=== PATIENT | male | born 1970 | race Caucasian/White ===

== ENCOUNTER 2016-12-27 16:00 | Inpatient (IN) | payer BC, OTHER ==
[2016-12-27] MEDS ORDERED: ASPIRIN 81 MG PO STA (17:35)
--- NOTE | 2016-12-27 17:42 | ED ---
Recheck HPI - General Source: patient, RN notes reviewed Mode of arrival: ambulatory Limitations: no limitations <Salvador Padilla - Last Filed: 12/27/16 19:32> <Chencho Gonzales - Last Filed: 12/27/16 19:38> - General Chief Complaint: Recheck/Abnormal Lab/Rx Stated Complaint: Sent By PCP Abnormal Labs Time Seen by Provider: 12/27/16 17:30 - History of Present Illness Initial Comments: This a 46-year-old male presents emergency Department secondary to abnormal stress test that was performed today. Patient states that he has stress test this morning and received a phone call from his primary care physician who advised him go to the emergency department because stress test showed possible infarct. Patient states that he does have a history of hypertension, hyperlipidemia and is a former smoker. Patient states that he's been told that he is borderline diabetic. Patient states this was a stress test for surgical clearance. He states that he has chronic pain secondary to multiple muscle skeletal issues. Patient denies any chest pain or shortness breath this time denies headache, dizziness, focal weakness. (Salvador Padilla) - Related Data Home Medications Medication Instructions Recorded Confirmed Amitriptyline HCl [Elavil] 50 mg PO HS 12/27/16 12/27/16 Benazepril HCl 40 mg PO DAILY 12/27/16 12/27/16 Cyclobenzaprine [Flexeril] 10 mg PO HS 12/27/16 12/27/16 Ergocalciferol (Vitamin D2) 50,000 unit PO TH 12/27/16 12/27/16 [Vitamin D2] Simvastatin [Zocor] 40 mg PO HS 12/27/16 12/27/16 amLODIPine [Norvasc] 10 mg PO DAILY 12/27/16 12/27/16 traMADol HCL [Ultram] 50 - 100 mg PO TID PRN 12/27/16 12/27/16 Allergies Allergy/AdvReac Type Severity Reaction Status Date / Time No Known Allergies Allergy Verified 12/27/16 17:59 Review of Systems ROS Other: All systems not noted in ROS Statement are negative. <Salvador Padilla - Last Filed: 12/27/16 19:32> ROS Other: All systems not noted in ROS Statement are negative. <Chencho Gonzales - Last Filed: 12/27/16 19:38> ROS Statement: Those systems with pertinent positive or pertinent negative responses have been documented in the HPI. Past Medical History Past Medical History: Hyperlipidemia, Hypertension History of Any Multi-Drug Resistant Organisms: None Reported Past Surgical History: No Surgical Hx Reported Past Psychological History: No Psychological Hx Reported Smoking Status: Former smoker Past Alcohol Use History: Occasional Past Drug Use History: None Reported <Salvador Padilla - Last Filed: 12/27/16 19:32> General Exam Limitations: no limitations General appearance: alert, in no apparent distress, obese Neck exam: Present: normal inspection. Absent: tenderness, meningismus, lymphadenopathy Respiratory exam: Present: normal lung sounds bilaterally. Absent: respiratory distress, wheezes, rales, rhonchi, stridor Cardiovascular Exam: Present: regular rate, normal rhythm, normal heart sounds. Absent: systolic murmur, diastolic murmur, rubs, gallop, clicks Neurological exam: Present: alert, oriented X3, CN II-XII intact, reflexes normal. Absent: motor sensory deficit Skin exam: Present: warm, dry, intact, normal color. Absent: rash <Salvador Padilla - Last Filed: 12/27/16 19:32> Medical Decision Making - Lab Data Result diagrams: 12/27/16 17:50 12/27/16 17:50 <Salvador Padilla - Last Filed: 12/27/16 19:32> - Lab Data Result diagrams: 12/27/16 17:50 12/27/16 17:50 <Chencho Gonzales - Last Filed: 12/27/16 19:38> - Medical Decision Making The patient was seen and examined. All diagnostics were reviewed. The case is discussed with the PA and I agree with the findings as documented. Case was discussed with primary care physician patient is admitted for further cardiac workup and cardiology consultation. (Chencho Gonzales) - Lab Data Lab Results 12/27/16 12/27/16 12/27/16 Range/Units 17:50 17:50 17:50 WBC 8.6 (3.8-10.6) k/uL RBC 5.11 (4.30-5.90) m/uL Hgb 15.6 (13.0-17.5) gm/dL Hct 45.8 (39.0-53.0) % MCV 89.7 (80.0-100.0) fL MCH 30.6 (25.0-35.0) pg MCHC 34.1 (31.0-37.0) g/dL RDW 13.4 (11.5-15.5) % Plt Count 246 (150-450) k/uL Neutrophils % 64 % Lymphocytes % 26 % Monocytes % 6 % Eosinophils % 1 % Basophils % 0 % Neutrophils # 5.5 (1.3-7.7) k/uL Lymphocytes # 2.3 (1.0-4.8) k/uL Monocytes # 0.5 (0-1.0) k/uL Eosinophils # 0.1 (0-0.7) k/uL Basophils # 0.0 (0-0.2) k/uL PT (9.0-12.0) sec INR (<1.2) APTT (22.0-30.0) sec Sodium 141 (137-145) mmol/L Potassium 4.7 (3.5-5.1) mmol/L Chloride 106 (98-107) mmol/L Carbon Dioxide 25 (22-30) mmol/L Anion Gap 10 mmol/L BUN 14 (9-20) mg/dL Creatinine 0.92 (0.66-1.25) mg/dL Est GFR (MDRD) Af Amer >60 (>60 ml/min/1.73 sqM) Est GFR (MDRD) Non-Af >60 (>60 ml/min/1.73 sqM) Glucose 83 (74-99) mg/dL Calcium 10.0 (8.4-10.2) mg/dL Magnesium 2.0 (1.6-2.3) mg/dL Total Bilirubin 0.3 (0.2-1.3) mg/dL AST 29 (17-59) U/L ALT 61 (21-72) U/L Alkaline Phosphatase 89 (38-126) U/L Total Creatine Kinase 165 (55-170) U/L CK-MB (CK-2) 0.8 (0.0-2.4) ng/mL CK-MB (CK-2) Rel Index 0.5 Troponin I <0.012 (0.000-0.034) ng/mL Total Protein 7.1 (6.3-8.2) g/dL Albumin 4.7 (3.5-5.0) g/dL 12/27/16 Range/Units 17:50 WBC (3.8-10.6) k/uL RBC (4.30-5.90) m/uL Hgb (13.0-17.5) gm/dL Hct (39.0-53.0) % MCV (80.0-100.0) fL MCH (25.0-35.0) pg MCHC (31.0-37.0) g/dL RDW (11.5-15.5) % Plt Count (150-450) k/uL Neutrophils % % Lymphocytes % % Monocytes % % Eosinophils % % Basophils % % Neutrophils # (1.3-7.7) k/uL Lymphocytes # (1.0-4.8) k/uL Monocytes # (0-1.0) k/uL Eosinophils # (0-0.7) k/uL Basophils # (0-0.2) k/uL PT 10.6 (9.0-12.0) sec INR 1.0 (<1.2) APTT 23.8 (22.0-30.0) sec Sodium (137-145) mmol/L Potassium (3.5-5.1) mmol/L Chloride (98-107) mmol/L Carbon Dioxide (22-30) mmol/L Anion Gap mmol/L BUN (9-20) mg/dL Creatinine (0.66-1.25) mg/dL Est GFR (MDRD) Af Amer (>60 ml/min/1.73 sqM) Est GFR (MDRD) Non-Af (>60 ml/min/1.73 sqM) Glucose (74-99) mg/dL Calcium (8.4-10.2) mg/dL Magnesium (1.6-2.3) mg/dL Total Bilirubin (0.2-1.3) mg/dL AST (17-59) U/L ALT (21-72) U/L Alkaline Phosphatase (38-126) U/L Total Creatine Kinase (55-170) U/L CK-MB (CK-2) (0.0-2.4) ng/mL CK-MB (CK-2) Rel Index Troponin I (0.000-0.034) ng/mL Total Protein (6.3-8.2) g/dL Albumin (3.5-5.0) g/dL 12/27/16 18:49 EKG performed at 16:35 normal sinus rhythm with a rate of 93 GA interval 146 QRS duration 94 QT/QTC 350/435 there is inverted T waves noted in lead 3 (Salvador Padilla) Disposition <Salvadro aPdilla - Last Filed: 12/27/16 19:32> <Chencho Gonzales - Last Filed: 12/27/16 19:38> Clinical Impression: Abnormal stress test, Chest pain Disposition: ADMITTED IP TO THIS HOSP Condition: Stable Referrals: Tavares Bryson MD [Primary Care Provider] - 1-2 days
[2016-12-27 18:09] LABS: Basophils % (A) 0 %; CH 30.3; CHCM 33.9; Eosinophils # (A) 0.1 k/uL (0-0.7); Eosinophils % (A) 1 %; HCT 45.8 % (39.0-53.0); HDW 2.49; HGB 15.6 gm/dL (13.0-17.5); Luc # (Auto) 0.22; Luc % (Auto) 3; Lymphocytes # (A) 2.3 k/uL (1.0-4.8); Lymphocytes % (A) 26 %; MCH 30.6 pg (25.0-35.0); MCHC 34.1 g/dL (31.0-37.0); MCV 89.7 fL (80.0-100.0); Mean Platelet Volume 6.6; Monocytes # (A) 0.5 k/uL (0-1.0); Monocytes % (A) 6 %; Neutrophils # (A) 5.5 k/uL (1.3-7.7); Neutrophils % (A) 64 %; RBC 5.11 m/uL (4.30-5.90); RDW 13.4 % (11.5-15.5); WBC 8.6 k/uL (3.8-10.6); WBC (Perox) 8.11
[2016-12-27 18:22] LABS: Partial Thromboplastin Time 23.8 sec (22.0-30.0); Prothrombin Time 10.6 sec (9.0-12.0)
[2016-12-27 18:27] LABS: ALT 61 U/L (21-72); AST 29 U/L (17-59); Alkaline Phosphatase 89 U/L (38-126); Anion Gap 10 mmol/L; Blood Urea Nitrogen 14 mg/dL (9-20); Carbon Dioxide 25 mmol/L (22-30); Chloride 106 mmol/L (98-107); Glucose 83 mg/dL (74-99); Non-African American GFR(MDRD) >60 (>60 ml/min/1.73 sqM); Potassium 4.7 mmol/L (3.5-5.1); Sodium 141 mmol/L (137-145); Total Bilirubin 0.3 mg/dL (0.2-1.3); Total Protein 7.1 g/dL (6.3-8.2)
[2016-12-27 18:29] LABS: Creatine Kinase 165 U/L (55-170)
--- NOTE | 2016-12-27 18:29 | XR ---
EXAMINATION TYPE: XR chest 2V DATE OF EXAM: 12/27/2016 COMPARISON: NONE HISTORY: Abnormal stress test TECHNIQUE: Frontal and lateral views of the chest are obtained. FINDINGS: There is no focal air space opacity, pleural effusion, or pneumothorax seen. The cardiac silhouette size is within normal limits. The osseous structures are intact with mild degenerative c hanges of the thoracic spine. IMPRESSION: No acute cardiopulmonary process.
[2016-12-27 18:43] LABS: Creatine Kinase MB 0.8 ng/mL (0.0-2.4); Troponin I <0.012 ng/mL (0.000-0.034)
[2016-12-27] MEDS ORDERED: NITROGLYCERIN SL TABS 0.4 MG TAB SUBLINGUAL PRN (19:32)
[2016-12-27] MEDS ORDERED: HEPARIN SODIUM,PORCINE 5,000 UNIT/ML 1 ML VIAL IV ONE (19:32)
[2016-12-27] MEDS ORDERED: HEPARIN SODIUM,PORCINE/D5W PMX 25,000 UNIT in DEXTROSE/WATER 1 500ML.BAG IV SCH (19:45)
[2016-12-27] MEDS: AMITRIPTYLINE HCL 50 MG TAB PO SCH (21:06)
[2016-12-27] MEDS: CYCLOBENZAPRINE 10 MG TAB PO SCH (21:06)
[2016-12-27] MEDS: ATORVASTATIN 20 MG TAB PO SCH (21:06)
[2016-12-27] MEDS: traMADol 50 MG TAB PO PRN (21:07)
[2016-12-28 00:29] LABS: Creatine Kinase 131 U/L (55-170)
[2016-12-28 00:43] LABS: Creatine Kinase MB 0.6 ng/mL (0.0-2.4); Troponin I <0.012 ng/mL (0.000-0.034)
[2016-12-28] MEDS ORDERED: HEPARIN SODIUM,PORCINE 5,000 UNIT/ML 1 ML VIAL IV STA (03:08)
[2016-12-28 07:01] LABS: Cholesterol 122 mg/dL (<200)
[2016-12-28 07:03] LABS: Creatine Kinase 119 U/L (55-170); HDL Cholesterol 43 mg/dL (40-60)
[2016-12-28 07:14] LABS: Creatine Kinase MB 0.6 ng/mL (0.0-2.4); Troponin I <0.012 ng/mL (0.000-0.034)
--- NOTE | 2016-12-28 10:00 | P.CRDCN ---
History of Present Illness History of present illness: Patient interviewed and examined. Admitted by Dr. Bryson for an abnormal stress test done yesterday. Patient awaiting shoulder surgery. Stress test results are reviewed. Patient interviewed and examined. Vitals stable normal heart sounds. He denies any chest discomfort no undue shortness of breath his BMI is 48 He has hypertension and takes his medications regularly I suggested proceeding with coronary angiography to delineate the epicardial coronary anatomy based upon the fact that his stress test was abnormal. He is agreeable to plan He is seen Dr. Bauer a few years back and I will put him a call to Dr. Bauer did continue statins, continue amlodipine and benazepril continue baby aspirin PC full dictation by nurse practitioner Past Medical History Past Medical History: Chest Pain / Angina, Hyperlipidemia, Hypertension, Osteoarthritis (OA) Additional Past Medical History / Comment(s): 12/27/16 STRESS TEST .LT SIDE DOMINANT. CARPAL TUNNEL SHONNA, "MY ROTATOR CUFFS ARE GONE AND I HAVE BONE SPURS", "DR TOLD ME HE THINKS I MAY BE [employer] I JUST WATCH WHAT I EAT", DD HERNIATED /BULGING DISCS. History of Any Multi-Drug Resistant Organisms: None Reported Past Surgical History: No Surgical Hx Reported Additional Past Surgical History / Comment(s): SOME TEETH EXTRACTED Past Anesthesia/Blood Transfusion Reactions: Motion Sickness Smoking Status: Never smoker - Past Family History Mother Family Medical History: Cancer Additional Family Medical History / Comment(s): LUNG CANCER.... MOM'S DAD HAD BONE CANCER Father Family Medical History: Coronary Artery Disease (CAD), Diabetes Mellitus, Hyperlipidemia, Hypertension, Myocardial Infarction (GA) Additional Family Medical History / Comment(s): TRIPLE CABG Brother(s) Additional Family Medical History / Comment(s): OLDEST BROTHER HAD BONE CANCER Medications and Allergies Home Medications Medication Instructions Recorded Confirmed Type Amitriptyline HCl [Elavil] 50 mg PO HS 12/27/16 12/27/16 History Benazepril HCl 40 mg PO DAILY 12/27/16 12/27/16 History Cyclobenzaprine [Flexeril] 10 mg PO BID 12/27/16 12/27/16 History Ergocalciferol (Vitamin D2) 50,000 unit PO TH 12/27/16 12/27/16 History [Vitamin D2] Simvastatin [Zocor] 40 mg PO HS 12/27/16 12/27/16 History amLODIPine [Norvasc] 10 mg PO DAILY 12/27/16 12/27/16 History traMADol HCL [Ultram] 50 - 100 mg PO TID PRN 12/27/16 12/27/16 History Allergies Allergy/AdvReac Type Severity Reaction Status Date / Time No Known Allergies Allergy Verified 12/27/16 20:58 Physical Exam Vitals: Vital Signs Temp Pulse Pulse Resp BP BP Pulse Ox 12/28/16 07:44 98.1 F 74 18 110/55 98 12/28/16 04:00 62 18 12/28/16 03:59 98.3 F 67 18 132/76 96 12/28/16 00:00 98.3 F 80 18 124/75 95 12/27/16 20:36 90 18 12/27/16 20:16 98.6 F 89 18 142/87 98 12/27/16 19:55 98.4 F 89 18 142/95 94 L 12/27/16 17:56 89 18 148/86 97 12/27/16 16:25 98.2 F 87 20 135/81 95 Intake and Output 12/27/16 12/28/16 12/28/16 22:59 06:59 14:59 Intake Total 760 935.984 Output Total 1150 Balance -390 935.984 Intake: IV 80 320 0.9 NS @ KVO 80 160 Heparin Sodium,Porcine/ 160 D5w Pmx 25,000 unit In Dextrose/Water 1 500ml. bag @ 7.11 UNITS/KG/HR 19 .99 mls/hr IV .Q24H IRENA Rx#:[id number] Intake, IV Titration 80 265.984 Amount Heparin Sodium,Porcine/ 80 265.984 D5w Pmx 25,000 unit In Dextrose/Water 1 500ml. bag @ 7.11 UNITS/KG/HR 19 .99 mls/hr IV .Q24H IRENA Rx#:[id number] Oral 600 350 Output: Urine 1150 Other: Voiding Method Toilet Toilet Urinal Urinal # Voids 3 Weight 139 kg Results 12/27/16 17:50 12/27/16 17:50 Cardiac Enzymes 12/27/16 12/27/16 12/27/16 Range/Units 17:50 17:50 23:34 AST 29 (17-59) U/L CK-MB (CK-2) 0.8 0.6 (0.0-2.4) ng/mL Troponin I <0.012 <0.012 (0.000-0.034) ng/mL 12/28/16 Range/Units 06:21 AST (17-59) U/L CK-MB (CK-2) 0.6 (0.0-2.4) ng/mL Troponin I <0.012 (0.000-0.034) ng/mL Coagulation 12/27/16 12/27/16 Range/Units 17:50 23:34 PT 10.6 (9.0-12.0) sec APTT 23.8 31.2 H (22.0-30.0) sec Lipids 12/28/16 Range/Units 06:21 Triglycerides 72 (<150) mg/dL Cholesterol 122 (<200) mg/dL HDL Cholesterol 43 (40-60) mg/dL CBC 12/27/16 Range/Units 17:50 WBC 8.6 (3.8-10.6) k/uL RBC 5.11 (4.30-5.90) m/uL Hgb 15.6 (13.0-17.5) gm/dL Hct 45.8 (39.0-53.0) % Plt Count 246 (150-450) k/uL Comprehensive Metabolic Panel 12/27/16 Range/Units 17:50 Sodium 141 (137-145) mmol/L Potassium 4.7 (3.5-5.1) mmol/L Chloride 106 (98-107) mmol/L Carbon Dioxide 25 (22-30) mmol/L BUN 14 (9-20) mg/dL Creatinine 0.92 (0.66-1.25) mg/dL Glucose 83 (74-99) mg/dL Calcium 10.0 (8.4-10.2) mg/dL AST 29 (17-59) U/L ALT 61 (21-72) U/L Alkaline Phosphatase 89 (38-126) U/L Total Protein 7.1 (6.3-8.2) g/dL Albumin 4.7 (3.5-5.0) g/dL Current Medications Generic Name Dose Route Start Last Admin Trade Name Freq PRN Reason Stop Dose Admin Amitriptyline HCl 50 mg 09/18/17 21:00 12/27/16 21:06 Elavil PO 50 mg HS [facility] Administration Amlodipine Besylate 10 mg 12/28/16 09:00 Norvasc PO DAILY [facility] Aspirin 325 mg 12/28/16 09:00 Aspirin PO DAILY [facility] Atorvastatin Calcium 20 mg 12/27/16 21:00 12/27/16 21:06 Lipitor PO 20 mg HS [facility] Administration Cyclobenzaprine HCl 10 mg 12/27/16 21:00 12/27/16 21:06 Flexeril PO 10 mg HS [facility] Administration Heparin Sodium/Dextrose 25,000 500 mls @ 19.99 mls/hr 12/27/16 19:45 03:44 unit/ IV Solution IV 10.11 units/kg/hr .Q24H IRENA 28.43 mls/hr Protocol Titration 7.11 UNITS/KG/HR Lisinopril 40 mg 12/28/16 09:00 Zestril PO DAILY [facility] Nitroglycerin 0.4 mg 12/27/16 19:32 Nitrostat SUBLINGUAL Q5M PRN Chest Pain Tramadol HCl 50 - 100 mg 12/27/16 19:34 12/27/16 21:07 Ultram PO 100 mg TID PRN Administration Pain Intake and Output 12/27/16 12/28/16 12/28/16 22:59 06:59 14:59 Intake Total 760 935.984 Output Total 1150 Balance -390 935.984 Intake: IV 80 320 0.9 NS @ KVO 80 160 Heparin Sodium,Porcine/ 160 D5w Pmx 25,000 unit In Dextrose/Water 1 500ml. bag @ 7.11 UNITS/KG/HR 19 .99 mls/hr IV .Q24H [facility] Rx#:[id number] Intake, IV Titration 80 265.984 Amount Heparin Sodium,Porcine/ 80 265.984 D5w Pmx 25,000 unit In Dextrose/Water 1 500ml. bag @ 7.11 UNITS/KG/HR 19 .99 mls/hr IV .Q24H [facility] Rx#:[id number] Oral 600 350 Output: Urine 1150 Other: Voiding Method Toilet Toilet Urinal Urinal # Voids 3 Weight 139 kg 12/27/16 17:50 12/27/16 17:50
[2016-12-28] MEDS ORDERED: ALPRAZolam 0.5 MG TAB PO PRN (10:03)
[2016-12-28] MEDS ORDERED: ALPRAZolam 0.25 MG TAB PO PRN (10:03)
[2016-12-28] MEDS ORDERED: SODIUM CHLORIDE 0.9% 1,000 ML in EMPTY BAG 1 BAG IV ONE (10:03)
[2016-12-28] MEDS: ASPIRIN 325 MG TAB PO SCH (10:41)
[2016-12-28] MEDS: LISINOPRIL 20 MG TAB PO SCH (10:41)
[2016-12-28] MEDS: amLODIPine 10 MG TAB PO SCH (10:41)
--- NOTE | 2016-12-28 11:46 | P.CRDCN ---
History of Present Illness Consult date: 12/28/16 History of present illness: This is a 46-year-old male. Past medical history significant for hypertension, hyperlipidemia and morbid obesity. Patient presents with complaints of abnormal Lexiscan done yesterday. He was sent in by his PCP. The patient denies chest pain, shortness of breath, dizziness, back pain, arm pain, nausea or vomiting. He states he is completely asymptomatic. The Lexiscan stress test is being done as per for presurgical clearance. He is scheduled for a left rotator cuff repair Tuesday with Dr. Plascencia. Acuteness of the abnormality is not established at this time due to normal EKG and troponins. The patient has seen Dr. VIPIN Bauer in the office previously. His last consultation with him was in 2011. At that time it was recommended he have a sleep study with his PCP. EKG done shows normal sinus mechanism per minute with no T-wave abnormality. When compared with old EKG this appears consistent. Troponins are normal x 3. Chest x-ray showed no acute cardiopulmonary process. Most recent echo dated 02/2012 indicates normal systolic function with an ejection fraction of 55%. Mild concentric left ventricular hypertrophy. Left atrium mildly dilated. Right ventricle mildly dilated. Right atrium mildly dilated. Trace mitral regurgitation. Mild tricuspid regurgitation. Review of Systems Extensive review of systems performed, negative except mentioned in HPI. Past Medical History Past Medical History: Chest Pain / Angina, Hyperlipidemia, Hypertension, Osteoarthritis (OA) Additional Past Medical History / Comment(s): 12/27/16 STRESS TEST .LT SIDE DOMINANT. CARPAL TUNNEL SHONNA, "MY ROTATOR CUFFS ARE GONE AND I HAVE BONE SPURS", "DR TOLD ME HE THINKS I MAY BE [employer] I JUST WATCH WHAT I EAT", DD HERNIATED /BULGING DISCS. History of Any Multi-Drug Resistant Organisms: None Reported Past Surgical History: No Surgical Hx Reported Additional Past Surgical History / Comment(s): SOME TEETH EXTRACTED Past Anesthesia/Blood Transfusion Reactions: Motion Sickness Smoking Status: Never smoker - Past Family History Mother Family Medical History: Cancer Additional Family Medical History / Comment(s): LUNG CANCER.... MOM'S DAD HAD BONE CANCER Father Family Medical History: Coronary Artery Disease (CAD), Diabetes Mellitus, Hyperlipidemia, Hypertension, Myocardial Infarction (DC) Additional Family Medical History / Comment(s): TRIPLE CABG Brother(s) Additional Family Medical History / Comment(s): OLDEST BROTHER HAD BONE CANCER Medications and Allergies Home Medications Medication Instructions Recorded Confirmed Type Amitriptyline HCl [Elavil] 50 mg PO HS 12/27/16 12/27/16 History Benazepril HCl 40 mg PO DAILY 12/27/16 12/27/16 History Cyclobenzaprine [Flexeril] 10 mg PO BID 12/27/16 12/27/16 History Ergocalciferol (Vitamin D2) 50,000 unit PO TH 12/27/16 12/27/16 History [Vitamin D2] Simvastatin [Zocor] 40 mg PO HS 12/27/16 12/27/16 History amLODIPine [Norvasc] 10 mg PO DAILY 12/27/16 12/27/16 History traMADol HCL [Ultram] 50 - 100 mg PO TID PRN 12/27/16 12/27/16 History Allergies Allergy/AdvReac Type Severity Reaction Status Date / Time No Known Allergies Allergy Verified 12/27/16 20:58 Physical Exam Vitals: Vital Signs Temp Pulse Pulse Resp BP BP Pulse Ox 12/28/16 07:44 98.1 F 74 18 110/55 98 12/28/16 04:00 62 18 12/28/16 03:59 98.3 F 67 18 132/76 96 12/28/16 00:00 98.3 F 80 18 124/75 95 12/27/16 20:36 90 18 12/27/16 20:16 98.6 F 89 18 142/87 98 12/27/16 19:55 98.4 F 89 18 142/95 94 L 12/27/16 17:56 89 18 148/86 97 12/27/16 16:25 98.2 F 87 20 135/81 95 Intake and Output 12/27/16 12/28/16 12/28/16 22:59 06:59 14:59 Intake Total 760 935.984 Output Total 1150 Balance -390 935.984 Intake: IV 80 320 0.9 NS @ KVO 80 160 Heparin Sodium,Porcine/ 160 D5w Pmx 25,000 unit In Dextrose/Water 1 500ml. bag @ 7.11 UNITS/KG/HR 19 .99 mls/hr IV .Q24H [facility] Rx#:[id number] Intake, IV Titration 80 265.984 Amount Heparin Sodium,Porcine/ 80 265.984 D5w Pmx 25,000 unit In Dextrose/Water 1 500ml. bag @ 7.11 UNITS/KG/HR 19 .99 mls/hr IV .Q24H [facility] Rx#:[id number] Oral 600 350 Output: Urine 1150 Other: Voiding Method Toilet Toilet Toilet Urinal Urinal Urinal # Voids 3 Weight 139 kg GENERAL: This is a 46-year-old male in no apparent distress at the time of my examination. Morbidly obese. HEENT: Head is atraumatic, normocephalic. Pupils are equal, round. Sclerae anicteric. Conjunctivae are clear. Mucous membranes of the mouth are moist. Neck is supple. There is no jugular venous distention. No carotid bruit is heard. LUNGS: Clear to auscultation no wheezes, rales or rhonchi. No chest wall tenderness is noted on palpation or with deep breathing. HEART: Regular rate and rhythm without murmurs, rubs or gallops. S1 and S2 heard. ABDOMEN: Soft, nontender. Bowel sounds are heard. No organomegaly noted. EXTREMITIES: 2+ peripheral pulses with no evidence of peripheral edema and no calf tenderness noted. NEUROLOGIC: Patient is awake, alert and oriented x3. Results 12/27/16 17:50 12/27/16 17:50 Cardiac Enzymes 12/27/16 12/27/16 12/27/16 Range/Units 17:50 17:50 23:34 AST 29 (17-59) U/L CK-MB (CK-2) 0.8 0.6 (0.0-2.4) ng/mL Troponin I <0.012 <0.012 (0.000-0.034) ng/mL 12/28/16 Range/Units 06:21 AST (17-59) U/L CK-MB (CK-2) 0.6 (0.0-2.4) ng/mL Troponin I <0.012 (0.000-0.034) ng/mL Coagulation 12/27/16 12/27/16 Range/Units 17:50 23:34 PT 10.6 (9.0-12.0) sec APTT 23.8 31.2 H (22.0-30.0) sec Lipids 12/28/16 Range/Units 06:21 Triglycerides 72 (<150) mg/dL Cholesterol 122 (<200) mg/dL HDL Cholesterol 43 (40-60) mg/dL CBC 12/27/16 Range/Units 17:50 WBC 8.6 (3.8-10.6) k/uL RBC 5.11 (4.30-5.90) m/uL Hgb 15.6 (13.0-17.5) gm/dL Hct 45.8 (39.0-53.0) % Plt Count 246 (150-450) k/uL Comprehensive Metabolic Panel 12/27/16 Range/Units 17:50 Sodium 141 (137-145) mmol/L Potassium 4.7 (3.5-5.1) mmol/L Chloride 106 (98-107) mmol/L Carbon Dioxide 25 (22-30) mmol/L BUN 14 (9-20) mg/dL Creatinine 0.92 (0.66-1.25) mg/dL Glucose 83 (74-99) mg/dL Calcium 10.0 (8.4-10.2) mg/dL AST 29 (17-59) U/L ALT 61 (21-72) U/L Alkaline Phosphatase 89 (38-126) U/L Total Protein 7.1 (6.3-8.2) g/dL Albumin 4.7 (3.5-5.0) g/dL Current Medications Generic Name Dose Route Start Last Admin Trade Name Freq PRN Reason Stop Dose Admin Alprazolam 0.25 mg 12/28/16 10:03 Xanax PO Q6HR PRN Mild Anxiety Alprazolam 0.5 mg 12/28/16 10:03 Xanax PO Q6HR PRN Moderate Anxiety Amitriptyline HCl 50 mg 12/27/16 21:00 12/27/16 21:06 Elavil PO 50 mg HS [facility] Administration Amlodipine Besylate 10 mg 12/28/16 09:00 12/28/16 10:41 Norvasc PO 10 mg DAILY [facility] Administration Aspirin 325 mg 12/28/16 09:00 12/28/16 10:41 Aspirin PO 325 mg DAILY IRENA Administration Atorvastatin Calcium 20 mg 12/27/16 21:00 12/27/16 21:06 Lipitor PO 20 mg HS IRENA Administration Cyclobenzaprine HCl 10 mg 09/18/17 21:00 12/27/16 21:06 Flexeril PO 10 mg HS IRENA Administration Heparin Sodium/Dextrose 25,000 500 mls @ 19.99 mls/hr 12/27/16 19:45 03:44 unit/ IV Solution IV 10.11 units/kg/hr .Q24H [facility] 28.43 mls/hr Protocol Titration 7.11 UNITS/KG/HR Lisinopril 40 mg 12/28/16 09:00 12/28/16 10:41 Zestril PO 40 mg DAILY [facility] Administration Nitroglycerin 0.4 mg 12/27/16 19:32 Nitrostat SUBLINGUAL Q5M PRN Chest Pain Tramadol HCl 50 - 100 mg 12/27/16 19:34 12/27/16 21:07 Ultram PO 100 mg TID PRN Administration Pain Intake and Output 12/27/16 12/28/16 12/28/16 22:59 06:59 14:59 Intake Total 760 935.984 Output Total 1150 Balance -390 935.984 Intake: IV 80 320 0.9 NS @ KVO 80 160 Heparin Sodium,Porcine/ 160 D5w Pmx 25,000 unit In Dextrose/Water 1 500ml. bag @ 7.11 UNITS/KG/HR 19 .99 mls/hr IV .Q24H [facility] Rx#:[id number] Intake, IV Titration 80 265.984 Amount Heparin Sodium,Porcine/ 80 265.984 D5w Pmx 25,000 unit In Dextrose/Water 1 500ml. bag @ 7.11 UNITS/KG/HR 19 .99 mls/hr IV .Q24H [facility] Rx#:[id number] Oral 600 350 Output: Urine 1150 Other: Voiding Method Toilet Toilet Toilet Urinal Urinal Urinal # Voids 3 Weight 139 kg 12/27/16 17:50 12/27/16 17:50 EKG Interpretations (text) EKG indicates a normal sinus mechanism. Assessment and Plan Plan: ASSESSMENT 1. Abnormal Lexiscan stress test 2. Essential hypertension 3. Dyslipidemia 4. Morbid obesity PLAN Has been discussed with Dr. Bauer and he agrees to proceed with cardiac catheterization. This procedure will take place tomorrow. The patient should be nothing by mouth after midnight. I have discussed the risks, benefits and alternative therapies for the above-mentioned procedure and for both sedation/ analgesia as well as necessary blood product administration, if indicated, as they pertain to this patient. The patient has indicated understanding and acceptance of the risks and procedures discussed. Patient is agreeable to proceed. Continue medications as previously ordered. Nurse Practitioner note has been reviewed, I agree with a documented findings and plan of care. Patient was seen and examined.
--- NOTE | 2016-12-28 18:21 | ECHOF ---
Referral Reason:abnormal stress test MEASUREMENTS -------- HEIGHT: 170.2 cm WEIGHT: 138.8 kg BP: 110/55 RVIDd: 3.9 cm (< 3.3) IVSd: 1.2 cm (0.6 - 1.1) LVIDd: 5.8 cm (3.9 - 5.3) LVPWd: 1.3 cm (0.6 - 1.1) IVSs: 1.5 cm LVIDs: 4.3 cm LVPWs: 1.4 cm LAESV Index (A-L): 18.56 ml/m Ao Diam: 3.3 cm (2.0 - 3.7) AV Cusp: 2.1 cm (1.5 - 2.6) LA Diam: 4.0 cm (2.7 - 3.8) MV E Prashanth: 0.62 m/s MV DecT: 342 ms MV A Prashanth: 0.52 m/s MV E/A Ratio: 1.19 RAP: 5.00 mmHg RVSP: 9.79 mmHg FINDINGS -------- Sinus rhythm. This was a technically difficult study with suboptimal views. The left ventricular size is normal. There is mild concentric left ventricular hypertrophy. Overall left ventricular systolic function is normal with, an EF between 55 - 60 %. The right ventricle is normal in size and function. Normal LA size by volume 22+/-6 ml/m2. The right atrium is normal in size. Lumason was utilized for enhancement of images. The aortic valve is trileaflet, and appears structurally normal. No aortic stenosis or regurgitation. The mitral valve is normal. There is trace mitral regurgitation. Trace tricuspid regurgitation present. The pulmonic valve was not well visualized. The aortic root size is normal. IVC Not well visulized. The pericardium is normal. There is no pericardial effusion. CONCLUSIONS -------- 1. Sinus rhythm. 2. Trace tricuspid regurgitation present. 3. The pulmonic valve was not well visualized. 4. The aortic root size is normal. 5. IVC Not well visulized. 6. There is no pericardial effusion. 7. This was a technically difficult study with suboptimal views. 8. The left ventricular size is normal. 9. There is mild concentric left ventricular hypertrophy. 10. Overall left ventricular systolic function is normal with, an EF between 55 - 60 %. 11. Normal LA size by volume 22+/-6 ml/m2. 12. Lumason was utilized for enhancement of images. 13. The aortic valve is trileaflet, and appears structurally normal. No aortic stenosis or regurgitation. 14. There is trace mitral regurgitation. TECHNICIAN: Hubert Ashford RDCS
[2016-12-28] MEDS: traMADol 50 MG TAB PO PRN (22:16)
[2016-12-29] MEDS: AMITRIPTYLINE HCL 50 MG TAB PO SCH (05:31)
[2016-12-29] MEDS: CYCLOBENZAPRINE 10 MG TAB PO SCH (05:32)
[2016-12-29] MEDS: ATORVASTATIN 20 MG TAB PO SCH (05:32)
--- NOTE | 2016-12-29 05:39 | HP ---
HISTORY AND PHYSICAL CHIEF COMPLAINT: A 46-year-old, white male with hypertension dyslipidemia morbid obesity admitted to the ER due to acute myocardial infarction on a stress test that was read by radiology department. He was in for a preop stress test due to a surgery next week, an orthopedic surgery. Troponins were negative x3. Chest x-ray was negative. He was admitted. Ejection fraction 55%. He is going to have a heart catheterization tomorrow based on the stress test report. FAMILY HISTORY: Mother had lung cancer. Father had coronary artery disease, diabetes mellitus, dyslipidemia, hypertension, myocardial infarction. Brother has bone cancer. HOME MEDICINES: 1. Elavil. 2. Benazepril. 3. Flexeril. 4. Vitamin D2. 5. Zocor. 6. Norvasc. 7. Tramadol. ALLERGIES: Allergies are no known drug allergies. PHYSICAL EXAM: Temp 98.1, pulse 70 to 74, blood pressure 110 over 50s, O2 sat 98% on room air. CARDIOVASCULAR: S1, S2. LUNGS: Transmitted upper airway sounds. HEMATOLOGY: Negative Homans. PSYCH: Fair mood affect. OPHTHALMOLOGIC: Pupils equal, round and reactive to light and accommodation. NEUROLOGIC: Alert and oriented x3. VASCULAR: 2+ dorsalis pedis, posterior tibial radial pulses. Lungs are clear. ENDOCRINE: BMI is over 40. LABS: Labs reviewed CBC and Chem panel. ASSESSMENT: 1. Abnormal Lexiscan stress test. 2. Hypertension. 3. Obesity. 4. Dyslipidemia. The patient to have a cardiac catheterization in the morning due to preop necessity and possible heart attack seen on the stress test. MMODL / IJN: [id number] /
[2016-12-29] MEDS ORDERED: ATORVASTATIN 80 MG TAB PO STA (07:36)
[2016-12-29 08:01] VITALS: RESP 18
[2016-12-29] MEDS: ASPIRIN 325 MG TAB PO SCH (11:24)
[2016-12-29 11:31] VITALS: TEMP 98.1
--- NOTE | 2016-12-29 11:46 | PN ---
PROGRESS NOTE This is a 46-year-old obese gentleman with history of hypertension, hypercholesterolemia, who used to see me in the office until a couple of years ago. He apparently was going for elective left shoulder surgery, but because of an abnormal EKG and nondescript chest heaviness from time to time, he went on to have a Lexiscan stress test which revealed inferior lateral reversible defect suggestive of ischemia. He was advised cardiac catheterization. I discussed with the patient the findings on the nuclear scan, the rationale for cardiac cath, the risks, benefits, and options. He understands all details and wishes to proceed with the procedure. I would attempt from the right radial approach and the procedure will be performed today. If we find a significant lesion, he will go on to have an intervention. This was explained to the patient in great detail. I offered to talk to his , but I believe she is not available. Following the coronary angiography, if indicated, PCI would be performed and patient understands all the risks, benefits, options and rationale and wishes to proceed. PHYSICAL EXAM: Revealed blood pressure 134/70, pulse rate of 70 per minute. No JVD or carotid bruit. S1, S2 heard normally with distant heart sounds. Lungs were clear. Abdomen and lower extremity exam was unremarkable. MMODL / IJN: [id number] /
[2016-12-29] MEDS ORDERED: LIDOCAINE 2% INJ 20 MG/ML (20 ML MDV) ONE (12:13)
[2016-12-29] MEDS ORDERED: VERAPAMIL 2.5 MG/ML 2 ML AMP ONE (12:14)
[2016-12-29] MEDS ORDERED: diphenhydrAMINE 50 MG/ML 1 ML VIAL ONE (12:19)
[2016-12-29] MEDS ORDERED: MIDAZOLAM 2 MG/2 ML VIAL ONE (12:19)
[2016-12-29] MEDS ORDERED: IV FLUID CONTINUATION 1,000 ML IV ONE (12:30)
[2016-12-29] MEDS ORDERED: MIDAZOLAM 2 MG/2 ML VIAL IVP ONE (12:35)
[2016-12-29] MEDS ORDERED: diphenhydrAMINE 50 MG/ML 1 ML VIAL IVP ONE (12:35)
[2016-12-29] MEDS ORDERED: HEPARIN SODIUM 1,000 UN/ML (10ML VL) ONE (12:36)
[2016-12-29] MEDS ORDERED: LIDOCAINE 2% INJ 20 MG/ML SQ ONE ×2 (12:38)
[2016-12-29] MEDS ORDERED: HYDROmorphone 2 MG/ML 1 ML SYRINGE ONE (12:40)
[2016-12-29] MEDS: VERAPAMIL SYRINGE (5 MG/10 ML) INTRAARTER ONE ×2 (12:41→12:54)
[2016-12-29] MEDS ORDERED: HYDROmorphone 2 MG/ML 1 ML SYRINGE IVP ONE (12:42)
[2016-12-29] MEDS ORDERED: HEPARIN SODIUM 1,000 UN/ML (10ML VL) IV ONE (12:42)
[2016-12-29] MEDS ORDERED: IOHEXOL 350 MG/ML 100 ML BOTTLE INJ ONE (12:55)
[2016-12-29] MEDS: LISINOPRIL 20 MG TAB PO SCH (16:30)
[2016-12-29] MEDS: amLODIPine 10 MG TAB PO SCH (16:30)
[2016-12-29 17:29] VITALS: BP 143/86; PULSE 89
[2016-12-29] MEDS ORDERED: METOPROLOL TARTRATE 25 MG TAB PO SCH (21:00)
--- NOTE | 2016-12-29 22:17 | CC ---
CARDIAC CATHETERIZATION REPORT DATE OF SERVICE: 12/29/2016 PROCEDURE: Left heart catheterization, coronary angiography. PERFORMED BY: Dr. [place]ia Bauer. CLINICAL INFORMATION: Mr. Chencho Reddy is a 46-year-old obese gentleman with a history of hypertension, hyperlipidemia, and chronic back discomfort. He also has a history of left shoulder pain. Prior to elective shoulder surgery, he was advised to have a stress test because of some abnormality on the EKG by his primary care physician, Dr. Tavares Bryson. Stress test revealed evidence of ischemia in the inferolateral wall and he was therefore advised to have a cardiac catheterization. The rationale, risks, benefits and options were explained to the patient in great detail. He understood all details and wished to proceed with the procedure. PROCEDURE NOTE: Under local anesthesia and strict precautions, a 6-Uzbek introducer was placed in the right radial artery. Using an Ultimate I catheter, I performed selective coronary angiography of the left coronary artery and also checked LV pressures. Using a JR4 catheter, I performed selective coronary angiography of the nondominant RCA. LV pressures were obtained, but LV gram was not performed. The sheath was taken out and a TR band applied as per protocol and he was sent to the room in stable condition. The patient tolerated the procedure well without complications. Moderate conscious was provided for a total duration of 30 minutes. The patient was monitored closely. He was given Versed, Benadryl and Dilaudid. Oxygen saturation was good. CARDIAC CATHETERIZATION FINDINGS: The left ventricular end-diastolic pressure was 4 mmHg without any gradient across the aortic valve. CORONARY ANGIOGRAPHY FINDINGS: RIGHT CORONARY ARTERY: Small nondominant vessel supplies a limited amount of myocardium. There is no significant disease in the nondominant RCA. There are only minor irregularities. LEFT MAIN CORONARY ARTERY: Short, patent, disease-free vessel that immediately bifurcates into LAD and circumflex. Left main does not have any significant disease. LEFT ANTERIOR DESCENDING CORONARY ARTERY: Good-caliber vessel extends along the anterior wall and gives off small diagonal branches, several septal branches, runs all the way to the apex and supplies the lateral wall as well with a very long branch that is small in caliber but distributes the entire apicolateral wall. The entire LAD is free of significant disease. It supplies a sizable amount of myocardium. This is a large-distribution vessel. LEFT POSTERIOR CIRCUMFLEX CORONARY ARTERY: Technically a dominant vessel, gives off a small obtuse marginal proximally, a moderate-sized obtuse marginal in the midportion and other third obtuse marginal, and after that it bifurcates into PDA and PLV. The entire circumflex system has minor irregularities, no significant obstructive disease and supplies a sizable amount of myocardium. LEFT VENTRICULOGRAM: This was not performed. FINAL IMPRESSION: This patient has a left-dominant system. He does not have any obstructive coronary artery disease. His filling pressures are normal. LV gram was not performed, but by echocardiogram ejection fraction was 60%. RECOMMENDATION: Findings were discussed with the patient. I also spoke to the family members. He does not have any obstructive CAD. He can go ahead with the proposed left shoulder surgery. I am adding a beta tamir, metoprolol tartrate 25 mg daily to his regimen. He can be discharged later on today if he remains stable and if it is okay with Dr. Tavares Bryson. I tried to call Dr. Bryson on his cell phone, but there was no answer. I will try and call him in the office. The patient tolerated the procedure well without complication. There is no contraindication for the left shoulder surgery. I am recommending cautious fluid administration and optimal blood pressure control perioperatively. I will see him in the office next week. MMODL / IJN: [id number] /
[2016-12-30] MEDS ORDERED: METOPROLOL TARTRATE 25 MG TAB PO SCH ×2 (09:00)
== END 2016-12-29 20:41 | disposition home or self-care (01) | DRG 287 ==
LOC: EC 16:00 → 3OBS 19:37 → OBSVTOIN 12-29 12:43
PROVIDERS: ADMIT Family Medicine; ATTEND Family Medicine
PROC: B2111ZZ Fluoroscopy of Multiple Coronary Arteries using Low Osmolar Contrast (ICD-10-PCS; 2016-12-29)
PROC: 4A023N7 Measurement of Cardiac Sampling and Pressure, Left Heart, Percutaneous Approach (ICD-10-PCS; principal; 2016-12-29 12:12)
DX: R94.39 Abnormal result of other cardiovascular function study (principal); E66.01 Morbid (severe) obesity due to excess calories; I10 Essential (primary) hypertension; E78.5 Hyperlipidemia, unspecified; E78.00 Pure hypercholesterolemia, unspecified; M19.91 Primary osteoarthritis, unspecified site; G89.29 Other chronic pain; R73.03 Prediabetes; I07.1 Rheumatic tricuspid insufficiency; Z87.891 Personal history of nicotine dependence; Z79.899 Other long term (current) drug therapy; Z82.49 Family history of ischemic heart disease and other diseases of the circulatory system
CPT/HCPCS: 36415; 71020; 80053; 80061; 82550; 82553; 83735; 84484; 85025; 85610; 85730; 93005; 93306; 93458; 96365; 96366; 96374; 96376; 99284

== ENCOUNTER → 2016-12-27 | Outpatient (CLI) | payer BC, OTHER ==
[~2016-12-27] MED LIST: REGADENOSON 0.4 MG/5 ML SYRINGE IV ONE
--- NOTE | 2016-12-27 14:02 | NM ---
EXAMINATION TYPE: NM stress lexiscan cardiolite DATE OF EXAM: 12/27/2016 COMPARISON: NONE HISTORY: History of hypertension, hypercholesteremia, and family history of heart attack in the abdom en presents with abnormal EKG, presurgical study TECHNIQUE: After the intravenous administration of 10.77 mCi Tc 99m Sestamibi - Cardiolite resting S PECT images acquired 45 minutes post injection. The patient received 0.4mg Lexiscan, 28 mCi Tc 99m Sestamibi - Stress images obtained 30 minutes post injection FINDINGS: Review of stress and rest SPECT images demonstrates areas of diminished uptake on stress images versu s rest images short axis and horizontal long axis views involving inferolateral left ventricular wall mid to apical segment which acute infarct cannot be excluded. Gated analysis shows normal wall katherine on with an estimated left ventricular ejection fraction of 58 %. IMPRESSION: Cannot exclude acute infarct involving inferior lateral left ventricular wall mid to apical segment. The knee to further investigate with direct catheter angiogram should be based on clinical and EKG co rrelation. A Yellow message has been communicated to Tavares Bryson MD via the [facility] Result system on 12/27/2016 1:59 PM, Message ID [id number].
--- NOTE | 2016-12-27 18:40 | EST ---
EXERCISE STRESS DATE OF SERVICE: 12/27/16. TYPE OF REPORT: Stress test. INDICATIONS: Chest pain. Abnormal EKG. BASELINE HEART RATE: 74. BASELINE BLOOD PRESSURE: 135/89. MAXIMUM HEART RATE: 75. MAXIMUM BLOOD PRESSURE: 122/63 85% MPHR 100% MPHR RESULTS: This is a 46 -year-old male patient referred by Dr. Tavares Bryson for a stress test. Abnormal ECG at baseline, patient is preop for surgery. Baseline heart rate is 74 beats a minute. Baseline blood pressure 135/89 mmHg. Baseline 12-lead ECG shows baseline heart rate 74 beats per minute. Baseline blood pressure 135/89 mmHg. Baseline 12 lead ECG shows sinus rhythm, with nonspecific ST-T abnormalities. The patient received Lexiscan infusion per protocol. There was no definite changes in the ECG, occasional PVCs were noted. The nuclear portion of the stress test will be reported separately. IMPRESSION: No ECG evidence for ischemia. Normal heart rate and blood pressure response to Lexiscan infusion. Occasional PVCs noted. MMODL / IJN: [id number] /
== END | disposition home or self-care (01) ==
LOC: RADNMMAIN 08:47
PROVIDERS: ATTEND Family Medicine
DX: R94.31 Abnormal electrocardiogram [ECG] [EKG] (principal)
CPT/HCPCS: 93017; 78452; A9500; J2785

== ENCOUNTER → 2018-02-07 | Outpatient (CLI) | payer BC, MEDICARE ==
--- NOTE | 2018-02-07 16:02 | CT ---
EXAMINATION TYPE: CT urogram wo/w con DATE OF EXAM: 02/07/2018 COMPARISON: None HISTORY: Patient complains of microscopic hematuria. CT DLP: 7554.8 mGycm CONTRAST: Performed and with IV Contrast, patient injected with 100 mL of Isovue 300. CT Urography was performed with unenhanced followed by enhanced images of the kidneys, ureters and ur inary bladder. Delayed images were obtained. 3d reconstruction was performed at a separate work sta tion. FINDINGS: KIDNEYS/BLADDER: No hydronephrosis. No nephrolithiasis. No disctinct renal mass. Urinary bladder g rossly unremarkable. LUNG BASES-: No visible nodule. No infiltrate. LIVER/GB: No calcified gallstones. No space occupying hepatic lesion. Biliary tree is of normal ca liber. PANCREAS: No inflammation. No distinct mass. SPLEEN: No splenic enlargement. No lesion seen. ADRENALS: No nodule. No thickening. BOWEL: Normal appendix. Normal bowel caliber. No inflammation. GENITAL ORGANS: No gross abnormality. LYMPH NODES: No greater than 1cm abdominal or pelvic lymph nodes are appreciated. AORTA: No significant abnormality. OSSEOUS STRUCTURES: No significant abnormality is seen. OTHER: No significant additional abnormality is seen. IMPRESSION: 1. No significant abnormality to account for the patient's symptoms of hematuria. Clinical correlatio n advised.
== END | disposition home or self-care (01) ==
LOC: RADCTMAIN 14:19
PROVIDERS: ATTEND Urology
DX: R31.9 Hematuria, unspecified (principal)
CPT/HCPCS: 74178; 74400; Q9967

== ENCOUNTER → 2018-07-26 | Outpatient (CLI) | payer BC, MEDICARE ==
[2018-07-26 12:17] LABS: ALT 46 U/L (21-72); AST 21 U/L (17-59); Albumin 4.2 g/dL (3.5-5.0); Albumin/Globulin Ratio 1.8; Alkaline Phosphatase 75 U/L (38-126); Anion Gap 5 mmol/L; Blood Urea Nitrogen 17 mg/dL (9-20); Carbon Dioxide 30 mmol/L (22-30); Chloride 106 mmol/L (98-107); Globulin 2.4 g/dL; Glucose 91 mg/dL (74-99); Potassium 4.5 mmol/L (3.5-5.1); Sodium 141 mmol/L (137-145); Total Bilirubin 0.3 mg/dL (0.2-1.3); Total Protein 6.6 g/dL (6.3-8.2)
[2018-07-26 19:36] LABS: Hemoglobin A1C 6.1 % (4.0-6.0)
== END ==
LOC: LABWHC1 10:23
PROVIDERS: ATTEND Family Medicine
DX: Z51.81 Encounter for therapeutic drug level monitoring (principal); Z79.899 Other long term (current) drug therapy
CPT/HCPCS: 36415; 80053; 83036; 84443

== ENCOUNTER 2019-03-18 06:29 | Emergency (ER) | payer BC, MEDICARE ==
[2019-03-18 06:41] VITALS: BP 135/84; PULSE 69; RESP 20; TEMP 97.8
[2019-03-18] MEDS ORDERED: ACET/COD 300 MG/30 MG STARTER PACK 6 TAB BTL PO STA (06:50)
--- NOTE | 2019-03-18 06:52 | ED ---
ENT HPI - General Chief complaint: Dental/Oral Stated complaint: dental pain Time Seen by Provider: 03/18/19 06:41 Source: patient, family Mode of arrival: ambulatory Limitations: no limitations - History of Present Illness Initial comments: 48yo male presenting today for cc of right lower dental pain x 2 days. patient states that he cracked his tooth 2 days ago and has had increasing pain. He states orajel that he has been applying in no longer helping. Patient denies any swelling of the face, under tongue, fever, flu like symptoms. Patient denies any other complaints. Appears well on arrival. - Related Data Home Medications Medication Instructions Recorded Confirmed Amitriptyline HCl [Elavil] 50 mg PO HS 12/27/16 12/27/16 Benazepril HCl 40 mg PO DAILY 12/27/16 12/27/16 Cyclobenzaprine [Flexeril] 10 mg PO BID 12/27/16 12/27/16 Ergocalciferol (Vitamin D2) 50,000 unit PO TH 12/27/16 12/27/16 [Vitamin D2] Simvastatin [Zocor] 40 mg PO HS 12/27/16 12/27/16 amLODIPine [Norvasc] 10 mg PO DAILY 12/27/16 12/27/16 traMADol HCL [Ultram] 50 - 100 mg PO TID PRN 12/27/16 12/27/16 Previous Rx's Medication Instructions Recorded Metoprolol Tartrate [Lopressor] 25 mg PO DAILY #30 tab 12/29/16 Amoxicillin/Potassium Clav 1 tab PO Q12HR 7 Days #14 tab 03/18/19 [Augmentin 875-125 Tablet] Allergies Allergy/AdvReac Type Severity Reaction Status Date / Time No Known Allergies Allergy Verified 03/18/19 06:40 Review of Systems ROS Statement: Those systems with pertinent positive or pertinent negative responses have been documented in the HPI. ROS Other: All systems not noted in ROS Statement are negative. Past Medical History Past Medical History: Chest Pain / Angina, Hyperlipidemia, Hypertension, Osteoarthritis (OA) Additional Past Medical History / Comment(s): 12/27/16 STRESS TEST .LT SIDE DOMINANT. CARPAL TUNNEL SHONNA, "MY ROTATOR CUFFS ARE GONE AND I HAVE BONE SPURS", " TOLD ME HE THINKS I MAY BE BOARDERLINE DIABETIC I JUST WATCH WHAT I EAT", DD HERNIATED /BULGING DISCS. History of Any Multi-Drug Resistant Organisms: MRSA Date of last positivie culture/infection: 02/10/18 MDRO Source:: Groin Past Surgical History: No Surgical Hx Reported Additional Past Surgical History / Comment(s): SOME TEETH EXTRACTED Past Anesthesia/Blood Transfusion Reactions: Motion Sickness Past Psychological History: No Psychological Hx Reported Smoking Status: Never smoker Past Alcohol Use History: None Reported Past Drug Use History: None Reported - Past Family History Mother Family Medical History: Cancer Additional Family Medical History / Comment(s): LUNG CANCER.... MOM'S DAD HAD BONE CANCER Father Family Medical History: Coronary Artery Disease (CAD), Diabetes Mellitus, Hyperlipidemia, Hypertension, Myocardial Infarction ([place]) Additional Family Medical History / Comment(s): TRIPLE CABG Brother(s) Additional Family Medical History / Comment(s): OLDEST BROTHER HAD BONE CANCER General Exam - General Exam Comments Initial Comments: General: The patient is awake and alert, in no distress, and does not appear acutely ill. Eye: Pupils are equal, round and reactive to light, extra-ocular movements are intact. No nystagmus. There is normal conjunctiva bilaterally. No signs of icterus. Ears, nose, mouth and throat: There are moist mucous membranes and no oral lesions. No swelling below the tongue or pain. Cracked tooth #32. No evidence of adjacent mucosa. Mild pain to percussion Neck: The neck is supple, there is no tenderness or JVD. No swelling of the neck no lymphadenopathy or cervical angle of the mandible without Cardiovascular: There is a regular rate and rhythm. No murmur, rub or gallop is appreciated. Respiratory: Lungs are clear to auscultation, respirations are non-labored, breath sounds are equal. No wheezes, stridor, rales, or rhonchi. Musculoskeletal: Normal ROM, no tenderness. Strength 5/5. Sensation intact. Pulses equal bilaterally 2+. Neurological: A&O x 3. CN II-XII intact grossly, There are no obvious motor or sensory deficits. Coordination appears grossly intact. Speech is normal. Skin: Skin is warm and dry and no rashes or lesions are noted. Psychiatric: Cooperative, appropriate mood & affect, normal judgment. Limitations: no limitations Course Vital Signs 03/18/19 06:36 Temperature 97.8 F Pulse Rate 69 Respiratory 20 Rate Blood Pressure 135/84 O2 Sat by Pulse 99 Oximetry Medical Decision Making - Medical Decision Making Well-appearing 48-year-old male presented for dental pain cracked dentition. No signs of abscess on examination. Patient will be started on Augmentin to prevent infection and ensure there is no developing periapical abscess. No other abnormal findings such as obvious abscess or leuks angina. Patient appears nontoxic. Patient was instructed to follow-up with his dentist for extraction within the next week return parameters were discussed. Disposition Clinical Impression: Pain, dental, Broken or cracked tooth, nontraumatic Disposition: HOME SELF-CARE Condition: Good Instructions (If sedation given, give patient instructions): Dental Abscess (ED), Toothache (ED) Additional Instructions: Please use medication as discussed. Please follow-up with your dentist next week. Please return to emergency room if the symptoms increase or worsen or for any other concerns. Prescriptions: Amoxicillin/Potassium Clav [Augmentin 875-125 Tablet] 1 tab PO Q12HR 7 Days #14 tab Is patient prescribed a controlled substance at d/c from ED?: No Referrals: Tavares Bryson MD [Primary Care Provider] - 1-2 days Time of Disposition: 06:50
== END 2019-03-18 06:59 | disposition home or self-care (01) ==
LOC: EC 06:29
DX: K03.81 Cracked tooth (principal); E78.5 Hyperlipidemia, unspecified; I10 Essential (primary) hypertension; M19.90 Unspecified osteoarthritis, unspecified site; Z79.891 Long term (current) use of opiate analgesic; Z79.899 Other long term (current) drug therapy; Z86.14 Personal history of Methicillin resistant Staphylococcus aureus infection
CPT/HCPCS: 99282

== ENCOUNTER 2019-10-31 11:13 | Emergency (ER) | payer BC, MEDICARE, OTHER ==
[2019-10-31 11:20] VITALS: BP 121/73; PULSE 72; RESP 16; TEMP 98.1
[2019-10-31] MEDS ORDERED: LIDOCAINE 1% INJ 10MG/ML (20 ML MDV) SQ ONE (11:22)
[2019-10-31] MEDS ORDERED: DIPH,PERTUS(ACELL)TETVAC-LF 0.5 ML VIAL IM ONE (11:37)
--- NOTE | 2019-10-31 11:38 | ED ---
Wound/Laceration HPI - General Chief Complaint: Wound/Laceration Stated Complaint: finger lac Time Seen by Provider: 10/31/19 11:20 Source: patient, RN notes reviewed Mode of arrival: ambulatory Limitations: no limitations - History of Present Illness Initial Comments: 49-year-old male presents emergency from she went laceration to his left hand fifth digit. Patient states his washing dishes cut his finger with a knife. Unsure when his last tetanus was. Patient has full range motion no paresthesias bleeding controlled. - Related Data Home Medications Medication Instructions Recorded Confirmed Amitriptyline HCl [Elavil] 50 mg PO HS 12/27/16 12/27/16 Benazepril HCl 40 mg PO DAILY 12/27/16 12/27/16 Cyclobenzaprine [Flexeril] 10 mg PO BID 12/27/16 12/27/16 Ergocalciferol (Vitamin D2) 50,000 unit PO TH 12/27/16 12/27/16 [Vitamin D2] Simvastatin [Zocor] 40 mg PO HS 12/27/16 12/27/16 amLODIPine [Norvasc] 10 mg PO DAILY 12/27/16 12/27/16 traMADol HCL [Ultram] 50 - 100 mg PO TID PRN 12/27/16 12/27/16 Previous Rx's Medication Instructions Recorded Metoprolol Tartrate [Lopressor] 25 mg PO DAILY #30 tab 12/29/16 Amoxicillin/Potassium Clav 1 tab PO Q12HR 7 Days #14 tab 03/18/19 [Augmentin 875-125 Tablet] Allergies Allergy/AdvReac Type Severity Reaction Status Date / Time No Known Allergies Allergy Verified 03/18/19 06:40 Review of Systems ROS Statement: Those systems with pertinent positive or pertinent negative responses have been documented in the HPI. ROS Other: All systems not noted in ROS Statement are negative. Past Medical History Past Medical History: Chest Pain / Angina, Hyperlipidemia, Hypertension, Osteoarthritis (OA) Additional Past Medical History / Comment(s): 12/27/16 STRESS TEST .LT SIDE DOMINANT. CARPAL TUNNEL SHONNA, "MY ROTATOR CUFFS ARE GONE AND I HAVE BONE SPURS", " TOLD ME HE THINKS I MAY BE BOARDERLINE DIABETIC I JUST WATCH WHAT I EAT", DD HERNIATED /BULGING DISCS. History of Any Multi-Drug Resistant Organisms: MRSA Date of last positivie culture/infection: 02/10/18 MDRO Source:: Groin Past Surgical History: No Surgical Hx Reported Additional Past Surgical History / Comment(s): SOME TEETH EXTRACTED Past Anesthesia/Blood Transfusion Reactions: Motion Sickness Past Psychological History: No Psychological Hx Reported Past Alcohol Use History: None Reported Past Drug Use History: None Reported - Past Family History Mother Family Medical History: Cancer Additional Family Medical History / Comment(s): LUNG CANCER.... MOM'S DAD HAD BONE CANCER Father Family Medical History: Coronary Artery Disease (CAD), Diabetes Mellitus, Hyperlipidemia, Hypertension, Myocardial Infarction ([place]) Additional Family Medical History / Comment(s): TRIPLE CABG Brother(s) Additional Family Medical History / Comment(s): OLDEST BROTHER HAD BONE CANCER General Exam Limitations: no limitations General appearance: alert, in no apparent distress Head exam: Present: atraumatic, normocephalic, normal inspection Respiratory exam: Present: normal lung sounds bilaterally. Absent: respiratory distress, wheezes, rales, rhonchi, stridor Cardiovascular Exam: Present: regular rate, normal rhythm, normal heart sounds. Absent: systolic murmur, diastolic murmur, rubs, gallop, clicks Extremities exam: Present: other (Left hand fifth digit there is a 2 cm laceration no tendon involvement full range of motion neurovascular intact) Course Vital Signs 10/31/19 11:18 Temperature 98.1 F Pulse Rate 72 Respiratory 16 Rate Blood Pressure 121/73 O2 Sat by Pulse 97 Oximetry Procedures - Laceration Laceration #1 Consent Obtained: verbal consent Indication: laceration Site: hand (Left hand fifth digit) Size (cm): 2 Description: linear Depth: simple, single layer Anesthetic Used: lidocaine 1%, without epi Anesthesia Technique: local infiltration Amount (mls): 5 Pre-repair: wound explored, irrigated extensively, deep structures intact Type of Sutures: nylon Size of Sutures: 4-0 Number of Sutures: 3 Technique: simple, interrupted Patient Tolerated Procedure: well, no complications Medical Decision Making - Medical Decision Making Laceration was repaired patient for range of motion neurovascular wound care instructions given return parameters given Disposition Clinical Impression: Laceration of finger of left hand Disposition: HOME SELF-CARE Condition: Stable Instructions (If sedation given, give patient instructions): Care For Your Stitches (ED), Finger Laceration (ED) Additional Instructions: Have sutures removed in 10 days.Please return to the Emergency Department if symptoms worsen or any other concerns. Is patient prescribed a controlled substance at d/c from ED?: No Referrals: Tavares Bryson MD [Primary Care Provider] - 1-2 days Time of Disposition: 11:38
== END 2019-10-31 12:02 | disposition home or self-care (01) ==
LOC: EC 11:13
DX: S61.412A Laceration without foreign body of left hand, initial encounter (principal); I10 Essential (primary) hypertension; E78.5 Hyperlipidemia, unspecified; Z23 Encounter for immunization; Z79.899 Other long term (current) drug therapy; W26.0XXA Contact with knife, initial encounter; Y93.G1 Activity, food preparation and clean up
CPT/HCPCS: 90715; 99282; 12001; 90471; J2001

== ENCOUNTER → 2020-02-08 | Outpatient (CLI) | payer BC, MEDICARE ==
[2020-02-08 18:57] LABS: African American GFR (CKD) >90 (>60 ml/min/1.73 sqM); Anion Gap 8 mmol/L; Blood Urea Nitrogen 17 mg/dL (9-20); Carbon Dioxide 31 mmol/L (22-30); Chloride 99 mmol/L (98-107); Cholesterol 125 mg/dL (<200); HDL Cholesterol 33 mg/dL (40-60); LDL Cholesterol,Calculated 52 mg/dL (0-99); Non-African American GFR(CKD) 87 (>60 ml/min/1.73 sqM); Potassium 3.8 mmol/L (3.5-5.1); Sodium 138 mmol/L (137-145); Triglycerides 199 mg/dL (<150)
[2020-02-09 01:29] LABS: Microalbumin Creatinine Ratio <30 mg/g Creat (0-30); Urine Creatinine 42.6 mg/dL
[2020-02-09 02:55] LABS: Hemoglobin A1C 5.8 % (4.0-6.0)
== END | disposition home or self-care (01) ==
LOC: LAB 17:50
PROVIDERS: ATTEND Family Medicine
DX: E11.9 Type 2 diabetes mellitus without complications (principal); I10 Essential (primary) hypertension
CPT/HCPCS: 80051; 80061; 82043; 82565; 82570; 83036; 84443; 84520

== ENCOUNTER 2021-01-14 14:49 | Emergency (ER) | payer BC, MEDICARE ==
[2021-01-14] MEDS ORDERED: SODIUM CHLORIDE 0.9% 500 ML 500 ML IV STA (15:32)
[2021-01-14 16:30] LABS: Albumin 4.5 g/dL (3.5-5.0); Calcium 10.9 mg/dL (8.4-10.2); Magnesium 2.2 mg/dL (1.6-2.3); Potassium 4.6 mmol/L (3.5-5.1); Total Protein 8.1 g/dL (6.3-8.2)
[2021-01-14 16:31] LABS: Partial Thromboplastin Time 24.6 sec (22.0-30.0); Prothrombin Time 10.7 sec (9.0-12.0)
--- NOTE | 2021-01-14 16:38 | ED ---
General Adult HPI - General Chief complaint: Shortness of Breath Stated complaint: COVID+, Wants Antibodies Time Seen by Provider: 01/14/21 15:23 Source: patient, RN notes reviewed, old records reviewed Mode of arrival: ambulatory Limitations: no limitations - History of Present Illness Initial comments: 50-year-old male presenting for monoclonal antibody infusion. He was sent in by his primary care physician to receive infusion. He was diagnosed with coronavirus on 926. He's had generalized weakness, fatigue, cough and mild dyspnea. He's had no vomiting, he does report subjective fever and chills. He was not vaccinated. He had been on outpatient oral steroids without significant improvement. - Related Data Home Medications Medication Instructions Recorded Confirmed Amitriptyline HCl [Elavil] 50 mg PO HS 12/27/16 12/27/16 Benazepril HCl 40 mg PO DAILY 12/27/16 12/27/16 Cyclobenzaprine [Flexeril] 10 mg PO BID 12/27/16 12/27/16 Ergocalciferol (Vitamin D2) 50,000 unit PO TH 12/27/16 12/27/16 [Vitamin D2] Simvastatin [Zocor] 40 mg PO HS 12/27/16 12/27/16 amLODIPine [Norvasc] 10 mg PO DAILY 12/27/16 12/27/16 traMADol HCL [Ultram] 50 - 100 mg PO TID PRN 12/27/16 12/27/16 Previous Rx's Medication Instructions Recorded Metoprolol Tartrate [Lopressor] 25 mg PO DAILY #30 tab 12/29/16 Amoxicillin/Potassium Clav 1 tab PO Q12HR 7 Days #14 tab 03/18/19 [Augmentin 875-125 Tablet] Allergies Allergy/AdvReac Type Severity Reaction Status Date / Time No Known Allergies Allergy Verified 01/14/21 15:17 Review of Systems ROS Statement: Those systems with pertinent positive or pertinent negative responses have been documented in the HPI. ROS Other: All systems not noted in ROS Statement are negative. Past Medical History Past Medical History: Chest Pain / Angina, Hyperlipidemia, Hypertension, Osteoarthritis (OA) Additional Past Medical History / Comment(s): 12/27/16 STRESS TEST .LT SIDE DOMINANT. CARPAL TUNNEL SHONNA, "MY ROTATOR CUFFS ARE GONE AND I HAVE BONE SPURS", " TOLD ME HE THINKS I MAY BE BOARDERLINE DIABETIC I JUST WATCH WHAT I EAT", DD HERNIATED /BULGING DISCS. History of Any Multi-Drug Resistant Organisms: MRSA Date of last positivie culture/infection: 02/10/18 MDRO Source:: Groin Past Surgical History: No Surgical Hx Reported Additional Past Surgical History / Comment(s): SOME TEETH EXTRACTED Past Anesthesia/Blood Transfusion Reactions: Motion Sickness Past Psychological History: No Psychological Hx Reported Smoking Status: Never smoker Past Alcohol Use History: None Reported Past Drug Use History: None Reported - Past Family History Mother Family Medical History: Cancer Additional Family Medical History / Comment(s): LUNG CANCER.... MOM'S DAD HAD BONE CANCER Father Family Medical History: Coronary Artery Disease (CAD), Diabetes Mellitus, Hyperlipidemia, Hypertension, Myocardial Infarction ([place]) Additional Family Medical History / Comment(s): TRIPLE CABG Brother(s) Additional Family Medical History / Comment(s): OLDEST BROTHER HAD BONE CANCER General Exam Limitations: no limitations General appearance: alert, in no apparent distress Head exam: Present: atraumatic, normocephalic Eye exam: Present: normal appearance, PERRL ENT exam: Present: mucous membranes dry Neck exam: Present: normal inspection. Absent: tenderness, meningismus Respiratory exam: Present: rales, rhonchi, decreased breath sounds. Absent: respiratory distress, wheezes Cardiovascular Exam: Present: normal rhythm, tachycardia GI/Abdominal exam: Present: soft. Absent: distended, tenderness Extremities exam: Present: normal inspection, normal capillary refill. Absent: pedal edema Neurological exam: Present: alert, oriented X3, CN II-XII intact. Absent: motor sensory deficit Psychiatric exam: Present: normal affect, normal mood Skin exam: Present: warm, dry, intact. Absent: cyanosis, diaphoretic Course Vital Signs 01/14/21 01/14/21 15:18 17:21 Temperature 97.8 F 98.7 F Pulse Rate 114 H 101 H Respiratory 16 20 Rate Blood Pressure 88/71 107/68 O2 Sat by Pulse 98 98 Oximetry EKG Findings - EKG Comments: EKG Findings:: EKG: Sinus tachycardia, rate of 106, SC interval 142, QRS duration 94, QTC [address] segment elevation. There is Q waves in the inferior leads T-wave inversion. Medical Decision Making - Medical Decision Making 50-year-old male with coronavirus, monoclonal antibody has been ordered. I did workup this patient include CBC, CMP, chest x-ray, chest x-ray shows ill-defined multifocal pneumonia. This does not appear to be severe coronavirus pneumonia. Patient is not hypoxic. No respiratory distress. He has a hemoconcentration of 18.8. He is dehydrated with an elevated creatinine and mild lactic acidosis. He receives IV hydration as well as monoclonal antibodies in the emergency department. On reevaluation his vital signs are improved. He will continue oral hydration at home. Return parameters are discussed. He will monitor oxygen saturation at home. - Lab Data Result diagrams: 01/14/21 16:11 01/14/21 16:11 Lab Results 01/14/21 01/14/21 01/14/21 Range/Units 16:11 16:11 16:11 WBC 7.8 (3.8-10.6) k/uL RBC 6.19 H (4.30-5.90) m/uL Hgb 18.8 H (13.0-17.5) gm/dL Hct 54.2 H (39.0-53.0) % MCV 87.5 (80.0-100.0) fL MCH 30.4 (25.0-35.0) pg MCHC 34.7 (31.0-37.0) g/dL RDW 13.7 (11.5-15.5) % Plt Count 494 H (150-450) k/uL MPV 7.1 Neutrophils % 63 % Lymphocytes % 25 % Monocytes % 7 % Eosinophils % 2 % Basophils % 1 % Neutrophils # 5.0 (1.3-7.7) k/uL Lymphocytes # 1.9 (1.0-4.8) k/uL Monocytes # 0.6 (0-1.0) k/uL Eosinophils # 0.2 (0-0.7) k/uL Basophils # 0.1 (0-0.2) k/uL PT 10.7 (9.0-12.0) sec INR 1.0 (<1.2) APTT 24.6 (22.0-30.0) sec Sodium 138 (137-145) mmol/L Potassium 4.6 (3.5-5.1) mmol/L Chloride 100 (98-107) mmol/L Carbon Dioxide 24 (22-30) mmol/L Anion Gap 14 mmol/L BUN 32 H (9-20) mg/dL Creatinine 1.31 H (0.66-1.25) mg/dL Est GFR (CKD-EPI)AfAm 73 (>60 ml/min/1.73 sqM) Est GFR (CKD-EPI)NonAf 63 (>60 ml/min/1.73 sqM) Glucose 141 H (74-99) mg/dL Plasma Lactic Acid Mason (0.7-2.0) mmol/L Calcium 10.9 H (8.4-10.2) mg/dL Magnesium 2.2 (1.6-2.3) mg/dL Total Bilirubin 1.0 (0.2-1.3) mg/dL AST 46 (17-59) U/L ALT 87 H (4-49) U/L Alkaline Phosphatase 86 (38-126) U/L Total Protein 8.1 (6.3-8.2) g/dL Albumin 4.5 (3.5-5.0) g/dL 01/14/21 Range/Units 16:11 WBC (3.8-10.6) k/uL RBC (4.30-5.90) m/uL Hgb (13.0-17.5) gm/dL Hct (39.0-53.0) % MCV (80.0-100.0) fL MCH (25.0-35.0) pg MCHC (31.0-37.0) g/dL RDW (11.5-15.5) % Plt Count (150-450) k/uL MPV Neutrophils % % Lymphocytes % % Monocytes % % Eosinophils % % Basophils % % Neutrophils # (1.3-7.7) k/uL Lymphocytes # (1.0-4.8) k/uL Monocytes # (0-1.0) k/uL Eosinophils # (0-0.7) k/uL Basophils # (0-0.2) k/uL PT (9.0-12.0) sec INR (<1.2) APTT (22.0-30.0) sec Sodium (137-145) mmol/L Potassium (3.5-5.1) mmol/L Chloride (98-107) mmol/L Carbon Dioxide (22-30) mmol/L Anion Gap mmol/L BUN (9-20) mg/dL Creatinine (0.66-1.25) mg/dL Est GFR (CKD-EPI)AfAm (>60 ml/min/1.73 sqM) Est GFR (CKD-EPI)NonAf (>60 ml/min/1.73 sqM) Glucose (74-99) mg/dL Plasma Lactic Acid Mason 2.4 H* (0.7-2.0) mmol/L Calcium (8.4-10.2) mg/dL Magnesium (1.6-2.3) mg/dL Total Bilirubin (0.2-1.3) mg/dL AST (17-59) U/L ALT (4-49) U/L Alkaline Phosphatase (38-126) U/L Total Protein (6.3-8.2) g/dL Albumin (3.5-5.0) g/dL Disposition Clinical Impression: COVID Disposition: HOME SELF-CARE Condition: Fair Instructions (If sedation given, give patient instructions): Coronavirus Disease 2019 (COVID-19) Is patient prescribed a controlled substance at d/c from ED?: No Referrals: Tavares Bryson MD [Primary Care Provider] - 1-2 days
[2021-01-14 16:40] LABS: Basophils # (A) 0.1 k/uL (0-0.2); Basophils % (A) 1 %; Eosinophils # (A) 0.2 k/uL (0-0.7); Eosinophils % (A) 2 %; HCT 54.2 % (39.0-53.0); HGB 18.8 gm/dL (13.0-17.5); Lymphocytes # (A) 1.9 k/uL (1.0-4.8); Lymphocytes % (A) 25 %; MCH 30.4 pg (25.0-35.0); MCHC 34.7 g/dL (31.0-37.0); MCV 87.5 fL (80.0-100.0); Mean Platelet Volume 7.1; Monocytes # (A) 0.6 k/uL (0-1.0); Monocytes % (A) 7 %; Neutrophils % (A) 63 %; Platelet Count 494 k/uL (150-450); RBC 6.19 m/uL (4.30-5.90); RDW 13.7 % (11.5-15.5); WBC 7.8 k/uL (3.8-10.6)
[2021-01-14] MEDS ORDERED: SODIUM CHLORIDE 0.9% 500 ML 500 ML IV ONE (16:42)
[2021-01-14] MEDS ORDERED: SODIUM CHLORIDE 0.9% 50 ML IVPB ONE (17:00)
[2021-01-14] MEDS ORDERED: CASIRIVIMAB/IMDEVIMAB (EUA) 1,200 MG in SODIUM CHLORIDE 0.9% 100 ML IVPB ONE (17:00)
--- NOTE | 2021-01-14 17:26 | XR ---
EXAMINATION TYPE: XR chest 1V portable DATE OF EXAM: 01/14/2021 COMPARISON: 12/27/2016 HISTORY: 50 years Male. STUDY INDICATION GIVEN: covid . TECHNIQUE: Single AP portable chest radiograph IMPRESSION: Scattered ill-defined opacities seen bilaterally concerning for multifocal pneumonia. Minimal bibasilar left greater than right opacities could be on the basis of atelectasis. No pneumothorax or pleural effusion. Prominent cardiac silhouette though low lung volumes could accentuate this. No acute osseous abnormality.
[2021-01-14 18:19] VITALS: BP 99/68; PULSE 99; RESP 17; TEMP 97.9
== END 2021-01-14 18:43 | disposition home or self-care (01) ==
LOC: EC 14:49
DX: U07.1 COVID-19 (principal); I10 Essential (primary) hypertension; E78.5 Hyperlipidemia, unspecified; M19.90 Unspecified osteoarthritis, unspecified site; Z79.899 Other long term (current) drug therapy
CPT/HCPCS: 36415; 93005; 80053; 83605; 83735; 85025; 85610; 85730; 71045; 99285; 96365; Q0243; 96361; 96374; 99284

== ENCOUNTER 2021-04-23 06:37 | Day surgery (SDC) | payer BC, MEDICARE ==
[2021-04-20 16:15] VITALS: BMI 51.5
[~2021-04-23 06:37] MED LIST changes: +LACTATED RINGERS 1,000 ML IV SCH; +LIDOCAINE 1% (10MG/ML) FOR IV START INTRADERMA PRN; -REGADENOSON 0.4 MG/5 ML SYRINGE IV ONE
[2021-04-23 07:14] VITALS: TEMP 97.2
[2021-04-23 07:25] LABS: Glucose,Whole Blood 94 mg/dL (75-99)
[2021-04-23] MEDS ORDERED: PROPOFOL 10 MG/ML 20 ML VIAL IV ONE (07:56)
[2021-04-23] MEDS ORDERED: KETAMINE 10 MG/ML 20 ML VIAL ONE (07:56)
[2021-04-23] MEDS ORDERED: LIDOCAINE 1% INJ 10MG/ML (20 ML MDV) ONE (07:56)
--- NOTE | 2021-04-23 08:01 | P.GSHP ---
History of Present Illness H&P Date: 04/23/21 Chief Complaint: Screening colonoscopy This is a 50-year-old male who presents today for screening colonoscopy. Patient denies a significant GI complaints. Past Medical History Past Medical History: Chest Pain / Angina, Diabetes Mellitus, Hyperlipidemia, Hypertension, Musculoskeletal Disorder, Osteoarthritis (OA) Additional Past Medical History / Comment(s): 2017 Stress test - Lt side heart dominant. CTS bilat, Bulging discs, DDD, fx tailbone. Neuropathy BLE. RLS. Hx Covid 01/14/21, had antibody infusion. History of Any Multi-Drug Resistant Organisms: MRSA Date of last positivie culture/infection: 02/10/18 MDRO Source:: Groin Past Surgical History: Heart Catheterization, Orthopedic Surgery Additional Past Surgical History / Comment(s): Some teeth extracted. Lt Rotator cuff. Pain injections Past Anesthesia/Blood Transfusion Reactions: No Reported Reaction Smoking Status: Never smoker - Past Family History Mother Family Medical History: Cancer, Pulmonary Embolus Additional Family Medical History / Comment(s): LUNG CANCER.... MOM'S DAD HAD BONE CANCER Father Family Medical History: Coronary Artery Disease (CAD), Diabetes Mellitus, Hyperlipidemia, Hypertension, Myocardial Infarction ([place]) Additional Family Medical History / Comment(s): TRIPLE CABG Brother(s) Additional Family Medical History / Comment(s): OLDEST BROTHER HAD BONE CANCER Medications and Allergies Home Medications Medication Instructions Recorded Confirmed Type Amitriptyline HCl [Elavil] 50 mg PO HS 12/27/16 04/20/21 History Benazepril HCl 20 mg PO DAILY 12/27/16 04/20/21 History Cyclobenzaprine [Flexeril] 10 mg PO BID 12/27/16 04/20/21 History Ergocalciferol (Vitamin D2) 125 mcg PO SA 12/27/16 04/20/21 History [Vitamin D2] Simvastatin [Zocor] 40 mg PO HS 12/27/16 04/20/21 History traMADol HCL [Ultram] 50 mg PO TID 12/27/16 04/20/21 History Metoprolol Tartrate [Lopressor] 25 mg PO BID 04/20/21 04/20/21 History Pregabalin [Lyrica] 150 mg PO BID 04/20/21 04/20/21 History Semaglutide [Ozempic] 0.5 mg SQ SA 04/20/21 04/20/21 History Triamterene/Hydrochlorothiazid 1 each PO DAILY 04/20/21 04/20/21 History [Triamterene-Hctz 37.5-25 mg Tb] metFORMIN HCL [Glucophage] 500 mg PO DAILY 04/20/21 04/20/21 History rOPINIRole HCL [Requip] 1 mg PO HS 04/20/21 04/20/21 History Allergies Allergy/AdvReac Type Severity Reaction Status Date / Time No Known Allergies Allergy Verified 04/23/21 07:02 Surgical - Exam Vital Signs Temp Pulse Resp BP Pulse Ox 97.2 F L 76 16 138/76 97 04/23/21 07:12 04/23/21 07:12 04/23/21 07:12 04/23/21 07:12 04/23/21 07:12 - General well developed, well nourished, no distress - Eyes PERRL - ENT normal pinna - Neck no masses - Respiratory normal expansion - Cardiovascular Rhythm: regular - Abdomen Abdomen: soft, non tender Assessment and Plan Assessment: We'll perform screening colonoscopy
--- NOTE | 2021-04-23 08:15 | P.OP ---
Date of Procedure: 04/23/21 Preoperative Diagnosis: Screening colonoscopy Postoperative Diagnosis: Diverticulosis Procedure(s) Performed: Colonoscopy Anesthesia: MAC Surgeon: Mikey Carpio Pathology: none sent Condition: stable Disposition: PACU Description of Procedure: The patient's placed on the endoscopy table in the lateral position. He received IV sedation. Digital rectal exam was performed which revealed no abnormalities. Flexible colonoscope was then placed patient anus passed throughout the entire colon. The ileocecal valve was visualized. The cecum, ascending and transverse colon appeared normal. The descending and sigmoid colon had a few scattered diverticuli. Scope was brought back the rectum and this appeared normal. Scope withdrawn for patient.
[2021-04-23 08:33] VITALS: RESP 20
[2021-04-23 08:54] VITALS: BP 145/64; PULSE 75
--- NOTE | 2021-04-23 09:01 | P.OP ---
Date of Procedure: 04/23/21 Preoperative Diagnosis: History: Polyps diverticulosis Postoperative Diagnosis: Diverticulosis Procedure(s) Performed: Colonoscopy Anesthesia: MAC Surgeon: Mikey Carpio Pathology: none sent Condition: stable Disposition: PACU Description of Procedure: t colonoscopy was then placed patient anus passed rotator colon.colonoscope could not be passed into the cecum secondary to tortuous valve. Several times made to maneuver the colonoscope into the cecum however this wasn't possible. Scope was withdrawn. The distal right colon appeared normal. The transverse colon appeared normal. The descending and sigmoid colon had evidence of diverticular changes. There worsening diverticular changes seen in the sigmoid colon. There was no evidence of diverticulitis. The scope was brought back the rectum this appeared normal. Scope withdrawn for patient.
== END 2021-04-23 08:47 | disposition home or self-care (01) ==
LOC: ORWHC2ENDO 06:37
PROVIDERS: ATTEND Surgery
DX: K57.90 Diverticulosis of intestine, part unspecified, without perforation or abscess without bleeding (principal); E78.5 Hyperlipidemia, unspecified; I10 Essential (primary) hypertension; E11.9 Type 2 diabetes mellitus without complications; M19.90 Unspecified osteoarthritis, unspecified site; Z82.49 Family history of ischemic heart disease and other diseases of the circulatory system; Z83.3 Family history of diabetes mellitus
CPT/HCPCS: J2001; J2704; G0121

== ENCOUNTER 2022-12-15 10:38 | Emergency (ER) | payer BC, MEDICARE ==
[2022-12-15 11:05] VITALS: RESP 18
[2022-12-15] MEDS ORDERED: SODIUM CHLORIDE 0.9% 1,000 ML IV STA (11:25)
[2022-12-15] MEDS ORDERED: DICYCLOMINE 20 MG TAB PO STA (11:25)
[2022-12-15] MEDS ORDERED: SODIUM CHLORIDE 0.9% 500 ML 500 ML IV STA (11:25)
--- NOTE | 2022-12-15 11:36 | ED ---
Nausea/Vomiting/Diarrhea HPI - General Chief complaint: Nausea/Vomiting/Diarrhea Stated complaint: diarrhea Time Seen by Provider: 12/15/22 11:11 Source: patient, RN notes reviewed Mode of arrival: ambulatory Limitations: no limitations - History of Present Illness Initial comments: 52-year-old male presents emergency Department with chief complaint abdominal pain, diarrhea. Patient states symptoms started last few days. Patient has multiple episodes of watery diarrhea. He denies any associated fevers chills no melena hematochezia. Patient states that slight nausea without vomiting no prior abdominal surgeries denies any sick contacts. He states he feels very bloated, distended. - Related Data Home Medications Medication Instructions Recorded Confirmed Amitriptyline HCl [Elavil] 25 mg PO HS 12/27/16 06/16/22 Benazepril HCl 20 mg PO DAILY 12/27/16 06/16/22 Cyclobenzaprine [Flexeril] 10 mg PO BID 12/27/16 06/16/22 Simvastatin [Zocor] 40 mg PO HS 12/27/16 06/16/22 traMADol HCL [Ultram] 50 mg PO DAILY 12/27/16 06/16/22 Metoprolol Tartrate [Lopressor] 25 mg PO BID 04/20/21 06/16/22 Pregabalin [Lyrica] 150 mg PO BID 04/20/21 06/16/22 metFORMIN HCL [Glucophage] 500 mg PO DAILY 04/20/21 06/16/22 rOPINIRole HCL [Requip] 1 mg PO HS 04/20/21 06/16/22 Dulaglutide [Trulicity] 1.5 mg SQ PEDRO 06/16/22 06/16/22 Ergocalciferol (Vitamin D2) 1,250 mcg PO SA 06/16/22 06/16/22 [Drisdol (50,000 Iu)] Triamterene/Hydrochlorothiazid 1 cap PO DAILY 06/16/22 06/16/22 [Triamterene-Hctz 37.5-25 mg Cp] traMADol HCl [Ultram] 100 mg PO HS 06/16/22 06/16/22 Previous Rx's Medication Instructions Recorded Dicyclomine [Bentyl] 20 mg PO TID #30 tablet 12/15/22 Allergies Allergy/AdvReac Type Severity Reaction Status Date / Time No Known Allergies Allergy Verified 12/15/22 11:05 Review of Systems ROS Statement: Those systems with pertinent positive or pertinent negative responses have been documented in the HPI. ROS Other: All systems not noted in ROS Statement are negative. Past Medical History Past Medical History: Chest Pain / Angina, Diabetes Mellitus, Hyperlipidemia, Hypertension, Musculoskeletal Disorder, Osteoarthritis (OA) Additional Past Medical History / Comment(s): 2017 Stress test - Lt side heart dominant. CTS bilat, Bulging discs, DDD, fx tailbone. Neuropathy BLE. RLS. Hx Covid 01/14/21, had antibody infusion. History of Any Multi-Drug Resistant Organisms: MRSA Date of last positivie culture/infection: 02/10/18 MDRO Source:: Groin Past Surgical History: Heart Catheterization, Orthopedic Surgery Additional Past Surgical History / Comment(s): Some teeth extracted. Lt Rotator cuff. Pain injections Past Anesthesia/Blood Transfusion Reactions: No Reported Reaction Smoking Status: Never smoker Past Alcohol Use History: Rare Past Drug Use History: None Reported - Past Family History Mother Family Medical History: Cancer, Pulmonary Embolus Additional Family Medical History / Comment(s): LUNG CANCER.... MOM'S DAD HAD BONE CANCER Father Family Medical History: Coronary Artery Disease (CAD), Diabetes Mellitus, Hyperlipidemia, Hypertension, Myocardial Infarction ([place]) Additional Family Medical History / Comment(s): TRIPLE CABG Brother(s) Additional Family Medical History / Comment(s): OLDEST BROTHER HAD BONE CANCER General Exam Limitations: no limitations General appearance: alert, in no apparent distress Head exam: Present: atraumatic, normocephalic, normal inspection Eye exam: Present: normal appearance, PERRL, EOMI. Absent: scleral icterus, conjunctival injection, periorbital swelling Neck exam: Present: normal inspection. Absent: tenderness, meningismus, lymphadenopathy Respiratory exam: Present: normal lung sounds bilaterally. Absent: respiratory distress, wheezes, rales, rhonchi, stridor Cardiovascular Exam: Present: regular rate, normal rhythm, normal heart sounds. Absent: systolic murmur, diastolic murmur, rubs, gallop, clicks GI/Abdominal exam: Present: soft, tenderness (Minimal diffuse), normal bowel sounds. Absent: distended, guarding, rebound, rigid Course Vital Signs 09/06/23 09/06/23 09/06/23 11:02 11:05 12:04 Temperature 98.7 F 99.0 F Pulse Rate 85 81 81 Respiratory 18 18 Rate Blood Pressure 124/69 128/86 133/50 O2 Sat by Pulse 96 95 95 Oximetry Medical Decision Making - Medical Decision Making Was pt. sent in by a medical professional or institution (, JOI, TELEGRAPHIC INSTRUMENT SUPERVISOR, urgent c are, hospital, or [facility]...) When possible be specific @ -No Did you speak to anyone other than the patient for history (EMS, parent, family, police, friend...)? What history was obtained from this source @ -No Did you review nursing and triage notes (agree or disagree)? Why? @ -I reviewed and agree with nursing and triage notes Were old charts reviewed (outside hosp., previous admission, EMS record, old EKG, old radiological studies, urgent care reports/EKG's, [facility] records)? Report findings @ -No old charts were reviewed Differential Diagnosis (chest pain, altered mental status, abdominal pain women, abdominal pain men, vaginal bleeding, weakness, fever, dyspnea, syncope, headache, dizziness, GI bleed, back pain, seizure, CVA, palpatations, mental health, musculoskeletal)? @ -Differential Abdominal Pain Men: Appendicitis, cholecystitis, diverticulosis, ischemic bowel, pancreatitis, hepatitis, UTI, gastroenteritis, AAA, incarcerated hernia, bowel obstruction, constipation, inflammatory bowel, hepatitis, peptic ulcer disease, splenic infarction, perforated viscus, testicular torsion, this is not meant to be an all-inclusive listble EKG interpreted by me (3pts min.). @ -None X-rays interpreted by me (1pt min.). @ -X-ray KUB shows nonspecific bowel gas pattern CT interpreted by me (1pt min.). @ -None done U/S interpreted by me (1pt. min.). @ -None done What testing was considered but not performed or refused? (CT, X-rays, U/S, labs)? Why? @ -None What meds were considered but not given or refused? Why? @ -None Did you discuss the management of the patient with other professionals (professionals i.e. JOI Garnica, TELEGRAPHIC INSTRUMENT SUPERVISOR, lab, RT, psych nurse, social media strategist, color maker formulator, teacher, founder chairman and chief creative officer, pillowcase cutter)? Give summary @ -No Was smoking cessation discussed for >3mins.? @ -No Was critical care preformed (if so, how long)? @ -No Were there social determinants of health that impacted care today? How? (Homelessness, low income, unemployed, alcoholism, drug addiction, transportation, low edu. Level, literacy, decrease access to med. care, residential, rehab)? @ -No Was there de-escalation of care discussed even if they declined (Discuss DNR or withdrawal of care, Hospice)? DNR status @ -No What co-morbidities impacted this encounter? (DM, HTN, Smoking, COPD, CAD, Cancer, CVA, ARF, Chemo, Hep., AIDS, mental health diagnosis, sleep apnea, morbid obesity)? @ -None Was patient admitted / discharged? Hospital course, mention meds given and route, prescriptions, significant lab abnormalities, going to OR and other pertinent info. @ -Discharge patient symptoms are consistent with viral diarrhea, gastr oenteritis patient is discharged in stable condition return parameters were discussed.] Undiagnosed new problem with uncertain prognosis? @ -[No] Drug Therapy requiring intensive monitoring for toxicity (Heparin, Nitro, Insulin, Cardizem)? @ -[No] Were any procedures done? @ -[No] Diagnosis/symptom? @ -[Viral diarrhea] Acute, or Chronic, or Acute on Chronic? @ -[Acute] Uncomplicated (without systemic symptoms) or Complicated (systemic symptoms)? @ -[Uncomplicated] Side effects of treatment? @ -[No] Exacerbation, Progression, or Severe Exacerbation? @ -[No] Poses a threat to life or bodily function? How? (Chest pain, [place], [place], pneumonia, PE, COPD, DKA, ARF, appy, cholecystitis, CVA, Diverticulitis, Homicidal, Suicidal, threat to staff... and all critical care pts) @ -[No] - Lab Data Result diagrams: 12/15/22 11:25 12/15/22 11:25 Lab Results 12/15/22 12/15/22 Range/Units 11:25 11:25 WBC 7.7 (3.8-10.6) k/uL RBC 5.62 (4.30-5.90) m/uL Hgb 16.7 (13.0-17.5) gm/dL Hct 50.4 (39.0-53.0) % MCV 89.8 (80.0-100.0) fL MCH 29.8 (25.0-35.0) pg MCHC 33.2 (31.0-37.0) g/dL RDW 13.8 (11.5-15.5) % Plt Count 274 (150-450) k/uL MPV 7.3 Neutrophils % 69 % Lymphocytes % 23 % Monocytes % 4 % Eosinophils % 2 % Basophils % 0 % Neutrophils # 5.3 (1.3-7.7) k/uL Lymphocytes # 1.7 (1.0-4.8) k/uL Monocytes # 0.3 (0-1.0) k/uL Eosinophils # 0.2 (0-0.7) k/uL Basophils # 0.0 (0-0.2) k/uL Sodium 138 (137-145) mmol/L Potassium 3.8 (3.5-5.1) mmol/L Chloride 104 (98-107) mmol/L Carbon Dioxide 25 (22-30) mmol/L Anion Gap 9 mmol/L BUN 20 (9-20) mg/dL Creatinine 1.08 (0.66-1.25) mg/dL Est GFR (CKD-EPI)AfAm >90 (>60 ml/min/1.73 sqM) Est GFR (CKD-EPI)NonAf 78 (>60 ml/min/1.73 sqM) Glucose 104 H (74-99) mg/dL Calcium 9.9 (8.4-10.2) mg/dL Total Bilirubin 0.6 (0.2-1.3) mg/dL AST 23 (17-59) U/L ALT 30 (4-49) U/L Alkaline Phosphatase 90 (38-126) U/L Total Protein 7.2 (6.3-8.2) g/dL Albumin 4.2 (3.5-5.0) g/dL Lipase 87 (23-300) U/L Disposition Clinical Impression: Diarrhea, Abdominal pain Disposition: HOME SELF-CARE Condition: Stable Instructions (If sedation given, give patient instructions): Acute Diarrhea (ED), Abdominal Pain (ED) Additional Instructions: Please return to the Emergency Department if symptoms worsen or any other concerns. Prescriptions: Dicyclomine [Bentyl] 20 mg PO TID #30 tablet Is patient prescribed a controlled substance at d/c from ED?: No Referrals: Tavares Bryson MD [Primary Care Provider] - 1-2 days Time of Disposition: 13:26
[2022-12-15 12:02] LABS: Basophils % (A) 0 %; Eosinophils # (A) 0.2 k/uL (0-0.7); Eosinophils % (A) 2 %; HCT 50.4 % (39.0-53.0); HGB 16.7 gm/dL (13.0-17.5); Lymphocytes # (A) 1.7 k/uL (1.0-4.8); Lymphocytes % (A) 23 %; MCH 29.8 pg (25.0-35.0); MCHC 33.2 g/dL (31.0-37.0); MCV 89.8 fL (80.0-100.0); Mean Platelet Volume 7.3; Monocytes # (A) 0.3 k/uL (0-1.0); Monocytes % (A) 4 %; Neutrophils # (A) 5.3 k/uL (1.3-7.7); Neutrophils % (A) 69 %; Platelet Count 274 k/uL (150-450); RBC 5.62 m/uL (4.30-5.90); RDW 13.8 % (11.5-15.5); WBC 7.7 k/uL (3.8-10.6)
[2022-12-15 12:18] LABS: ALT 30 U/L (4-49); AST 23 U/L (17-59); African American GFR (CKD) >90 (>60 ml/min/1.73 sqM); Albumin 4.2 g/dL (3.5-5.0); Alkaline Phosphatase 90 U/L (38-126); Anion Gap 9 mmol/L; Blood Urea Nitrogen 20 mg/dL (9-20); Calcium 9.9 mg/dL (8.4-10.2); Carbon Dioxide 25 mmol/L (22-30); Chloride 104 mmol/L (98-107); Glucose 104 mg/dL (74-99); Lipase 87 U/L (23-300); Non-African American GFR(CKD) 78 (>60 ml/min/1.73 sqM); Potassium 3.8 mmol/L (3.5-5.1); Sodium 138 mmol/L (137-145); Total Bilirubin 0.6 mg/dL (0.2-1.3); Total Protein 7.2 g/dL (6.3-8.2)
--- NOTE | 2022-12-15 12:24 | XR ---
EXAMINATION TYPE: XR KUB DATE OF EXAM: 12/15/2022 COMPARISON: NONE HISTORY: Pain TECHNIQUE: Single upright KUB image of the abdomen is obtained FINDINGS: Paucity of small bowel gas. Gas and fecal material is seen in non-distended colon. No convincing evidence for pneumoperitoneum. No unusual calcifications. The lung bases are clear. The osseous structures are intact. IMPRESSION: Overall nonobstructive bowel gas pattern.
[2022-12-15 14:14] VITALS: BP 123/78; PULSE 76; TEMP 98.8
== END 2022-12-15 14:24 | disposition home or self-care (01) ==
LOC: EC 10:38
DX: R19.7 Diarrhea, unspecified (principal); E11.9 Type 2 diabetes mellitus without complications; E78.5 Hyperlipidemia, unspecified; I10 Essential (primary) hypertension; M19.90 Unspecified osteoarthritis, unspecified site; Z79.1 Long term (current) use of non-steroidal anti-inflammatories (NSAID); Z79.899 Other long term (current) drug therapy; Z79.84 Long term (current) use of oral hypoglycemic drugs; Z86.16 Personal history of COVID-19
CPT/HCPCS: 36415; 74018; 80053; 83690; 85025; 96360; 96361; 99284

== ENCOUNTER 2022-12-18 05:13 | Emergency (ER) | payer BC, MEDICARE ==
[2022-12-18 05:19] VITALS: RESP 18; TEMP 98
[2022-12-18] MEDS ORDERED: DIPHENOX-ATROP 2.5-0.025 MG 1 EACH TAB PO STA (05:29)
[2022-12-18] MEDS ORDERED: SODIUM CHLORIDE 0.9% 500 ML 500 ML IV STA (05:29)
[2022-12-18 06:07] LABS: ALT 31 U/L (4-49); AST 27 U/L (17-59); African American GFR (CKD) >90 (>60 ml/min/1.73 sqM); Albumin 3.6 g/dL (3.5-5.0); Alkaline Phosphatase 73 U/L (38-126); Anion Gap 8 mmol/L; Blood Urea Nitrogen 19 mg/dL (9-20); Calcium 8.8 mg/dL (8.4-10.2); Carbon Dioxide 23 mmol/L (22-30); Chloride 105 mmol/L (98-107); Glucose 117 mg/dL (74-99); Non-African American GFR(CKD) 89 (>60 ml/min/1.73 sqM); Potassium 3.9 mmol/L (3.5-5.1); Sodium 136 mmol/L (137-145); Total Bilirubin 0.4 mg/dL (0.2-1.3); Total Protein 6.1 g/dL (6.3-8.2)
[2022-12-18 06:18] LABS: Basophils % (A) 0 %; Eosinophils # (A) 0.2 k/uL (0-0.7); Eosinophils % (A) 2 %; HCT 45.9 % (39.0-53.0); HGB 15.1 gm/dL (13.0-17.5); Lymphocytes # (A) 2.5 k/uL (1.0-4.8); Lymphocytes % (A) 31 %; MCH 29.9 pg (25.0-35.0); MCV 90.8 fL (80.0-100.0); Mean Platelet Volume 7.2; Monocytes # (A) 0.4 k/uL (0-1.0); Monocytes % (A) 5 %; Neutrophils # (A) 4.9 k/uL (1.3-7.7); Neutrophils % (A) 60 %; Platelet Count 205 k/uL (150-450); RBC 5.06 m/uL (4.30-5.90); RDW 13.6 % (11.5-15.5); WBC 8.1 k/uL (3.8-10.6)
[2022-12-18] MEDS ORDERED: SODIUM CHLORIDE 0.9% 1,000 ML IV ONE (06:26)
--- NOTE | 2022-12-18 06:56 | ED ---
General Adult HPI - General Chief complaint: Nausea/Vomiting/Diarrhea Stated complaint: Diarrhea Time Seen by Provider: 12/18/22 06:09 Source: patient, RN notes reviewed Mode of arrival: ambulatory Limitations: no limitations - History of Present Illness Initial comments: 52-year-old male with a past medical history significant for hypertension, hyperlipidemia, diabetes mellitus type 2 presents the emergency department with a chief complaint of persistent diarrhea. Patient reports that he has had diarrhea since . He reports that he was seen and evaluated at this facility and had a unremarkable workup. He was advised to return if his symptoms persisted. Today he reports having a green and mucousy bowel movement. Patient reports that he feels like his abdomen is bloated. He denies any recent sick contacts. Denies eating any abnormal foods. Denies recent travel. He has not been taking for her symptoms. Denies any dizziness, lightheadedness, chest pain, shortness of breath, melena, hematochezia, hematemesis. - Related Data Home Medications Medication Instructions Recorded Confirmed Amitriptyline HCl [Elavil] 25 mg PO HS 12/27/16 06/16/22 Benazepril HCl 20 mg PO DAILY 12/27/16 06/16/22 Cyclobenzaprine [Flexeril] 10 mg PO BID 12/27/16 06/16/22 Simvastatin [Zocor] 40 mg PO HS 12/27/16 06/16/22 traMADol HCL [Ultram] 50 mg PO DAILY 12/27/16 06/16/22 Metoprolol Tartrate [Lopressor] 25 mg PO BID 04/20/21 06/16/22 Pregabalin [Lyrica] 150 mg PO BID 04/20/21 06/16/22 metFORMIN HCL [Glucophage] 500 mg PO DAILY 04/20/21 06/16/22 rOPINIRole HCL [Requip] 1 mg PO HS 04/20/21 06/16/22 Dulaglutide [Trulicity] 1.5 mg SQ PEDRO 06/16/22 06/16/22 Ergocalciferol (Vitamin D2) 1,250 mcg PO SA 06/16/22 06/16/22 [Drisdol (50,000 Iu)] Triamterene/Hydrochlorothiazid 1 cap PO DAILY 06/16/22 06/16/22 [Triamterene-Hctz 37.5-25 mg Cp] traMADol HCl [Ultram] 100 mg PO HS 06/16/22 06/16/22 Previous Rx's Medication Instructions Recorded Dicyclomine [Bentyl] 20 mg PO TID #30 tablet 12/15/22 Allergies Allergy/AdvReac Type Severity Reaction Status Date / Time No Known Allergies Allergy Verified 12/18/22 05:19 Review of Systems ROS Statement: Those systems with pertinent positive or pertinent negative responses have been documented in the HPI. ROS Other: All systems not noted in ROS Statement are negative. Past Medical History Past Medical History: Chest Pain / Angina, Diabetes Mellitus, Hyperlipidemia, Hypertension, Musculoskeletal Disorder, Osteoarthritis (OA) Additional Past Medical History / Comment(s): 2017 Stress test - Lt side heart dominant. CTS bilat, Bulging discs, DDD, fx tailbone. Neuropathy BLE. RLS. Hx Covid 01/14/21, had antibody infusion. History of Any Multi-Drug Resistant Organisms: MRSA Date of last positivie culture/infection: 02/10/18 MDRO Source:: Groin Past Surgical History: Heart Catheterization, Orthopedic Surgery Additional Past Surgical History / Comment(s): Some teeth extracted. Lt Rotator cuff. Pain injections Past Anesthesia/Blood Transfusion Reactions: No Reported Reaction Past Psychological History: Depression Smoking Status: Never smoker Past Alcohol Use History: Rare Past Drug Use History: None Reported - Past Family History Mother Family Medical History: Cancer, Pulmonary Embolus Additional Family Medical History / Comment(s): LUNG CANCER.... MOM'S DAD HAD BONE CANCER Father Family Medical History: Coronary Artery Disease (CAD), Diabetes Mellitus, Hyperlipidemia, Hypertension, Myocardial Infarction ([place]) Additional Family Medical History / Comment(s): TRIPLE CABG Brother(s) Additional Family Medical History / Comment(s): OLDEST BROTHER HAD BONE CANCER General Exam - General Exam Comments Initial Comments: General: Alert, in no acute distress, obese Head: atraumatic normocephalic. Eyes PERRL, EOMI intact, mucous membranes moist Respiratory: Lungs clear to auscultation bilaterally Cardiovascular: Heart rate regular rate and rhythm Abdominal: Soft without guarding or rebound, nontender Extremities: Normal inspection with full range of motion and normal capillary refill Neuroogic: alert and oriented 3, CN II-XII intact, able to ambulate with steady gait Skin: warm dry and intact with normal color Limitations: no limitations Course Vital Signs 12/18/22 05:16 Temperature 98 F Pulse Rate 68 Respiratory 18 Rate Blood Pressure 105/75 O2 Sat by Pulse 98 Oximetry Medical Decision Making - Medical Decision Making Was pt. sent in by a medical professional or institution (JOI Garnica, SIEBEL CRM DEVELOPER, urgent care, hospital, or [place] [facility] facility...) When possible be specific @ -[No] Did you speak to anyone other than the patient for history (EMS, parent, family, police, friend...)? What history was obtained from this source @ -[No] Did you review nursing and triage notes (agree or disagree)? Why? @ -[I reviewed and agree with nursing and triage notes] Were old charts reviewed (outside hosp., previous admission, EMS record, old EKG, old radiological studies, urgent care reports/EKG's, [place] [facility] facility records)? Report findings @ -[No old charts were reviewed] Differential Diagnosis (chest pain, altered mental status, abdominal pain women, abdominal pain men, vaginal bleeding, weakness, fever, dyspnea, syncope, headache, dizziness, GI bleed, back pain, seizure, CVA, palpatations, mental health, musculoskeletal)? @ -[not applicable] EKG interpreted by me (3pts min.). @ -[As above] X-rays interpreted by me (1pt min.). @ -[None done] CT interpreted by me (1pt min.). @ CT abdomen and pelvis is negative for any intra-abdominal process to account for his patient's symptoms. U/S interpreted by me (1pt. min.). @ -[None done] What testing was considered but not performed or refused? (CT, X-rays, U/S, la bs)? Why? @ -[None] What meds were considered but not given or refused? Why? @ -[None] Did you discuss the management of the patient with other professionals (professionals i.e. JOI Garnica, SIEBEL CRM DEVELOPER, lab, RT, psych nurse, community mental health social worker, stunt woman, teacher, rating officer, case management manager)? Give summary @ -[No] Was smoking cessation discussed for >3mins.? @ -[No] Was critical care preformed (if so, how long)? @ -[No] Were there social determinants of health that impacted care today? How? (Homelessness, low income, unemployed, alcoholism, drug addiction, transportation, low edu. Level, literacy, decrease access to med. care, alf, rehab)? @ -[No] Was there de-escalation of care discussed even if they declined (Discuss DNR or withdrawal of care, Hospice)? DNR status @ -[No] What co-morbidities impacted this encounter? (DM, HTN, Smoking, COPD, CAD, Cancer, CVA, ARF, Chemo, Hep., AIDS, mental health diagnosis, sleep apnea, morbid obesity)? @ -[None] Was patient admitted / discharged? Hospital course, mention meds given and route, prescriptions, significant lab abnormalities, going to OR and other pe rtinent info. @ Discharged. This is a pleasant 52-year-old male who presents to the emergency department with diarrhea. Patient had thorough history and physical exam performed on the ED. Physical exam essentially unremarkable. Patient is obese. Heart rate regular rate and rhythm, lungs are to auscultation bilaterally, abdomen soft no tenderness. Patient had lab work and imaging which were essentially unremarkable. CT results negative for any intra- abdominal process or evidence of obstruction. Patient was provided 1 L IV fluids with symptomatic relief. Return precautions were discussed at length. Patient verbalized understanding all questions were addressed. Patient given a prescription for outpatient stool sample to Patient be discharged in stable condition. Case discussed with [facility]. Argueta [facility] who agrees with plan of care Undiagnosed new problem with uncertain prognosis? @ -[No] Drug Therapy requiring intensive monitoring for toxicity (Heparin, Nitro, Insulin, Cardizem)? @ -[No] Were any procedures done? @ -[No] Diagnosis/symptom? @ -Diarrhea Acute, or Chronic, or Acute on Chronic? @ -Acute Uncomplicated (without systemic symptoms) or Complicated (systemic symptoms)? @ -Uncomplicated Side effects of treatment? @ -[No] Exacerbation, Progression, or Severe Exacerbation? @ -[No] Poses a threat to life or bodily function? How? (Chest pain, [place], [place], pneumonia, PE, COPD, DKA, ARF, appy, cholecystitis, CVA, Diverticulitis, Homicidal, Suicidal, threat to staff... and all critical care pts) @ -Low likelihood - Lab Data Result diagrams: 12/18/22 05:39 09/09/23 05:39 Lab Results 12/18/22 12/18/22 12/18/22 Range/Units 05:39 05:39 06:33 WBC 8.1 (3.8-10.6) k/uL RBC 5.06 (4.30-5.90) m/uL Hgb 15.1 (13.0-17.5) gm/dL Hct 45.9 (39.0-53.0) % MCV 90.8 (80.0-100.0) fL MCH 29.9 (25.0-35.0) pg MCHC 33.0 (31.0-37.0) g/dL RDW 13.6 (11.5-15.5) % Plt Count 205 (150-450) k/uL MPV 7.2 Neutrophils % 60 % Lymphocytes % 31 % Monocytes % 5 % Eosinophils % 2 % Basophils % 0 % Neutrophils # 4.9 (1.3-7.7) k/uL Lymphocytes # 2.5 (1.0-4.8) k/uL Monocytes # 0.4 (0-1.0) k/uL Eosinophils # 0.2 (0-0.7) k/uL Basophils # 0.0 (0-0.2) k/uL Sodium 136 L (137-145) mmol/L Potassium 3.9 (3.5-5.1) mmol/L Chloride 105 (98-107) mmol/L Carbon Dioxide 23 (22-30) mmol/L Anion Gap 8 mmol/L BUN 19 (9-20) mg/dL Creatinine 0.98 (0.66-1.25) mg/dL Est GFR (CKD-EPI)AfAm >90 (>60 ml/min/1.73 sqM) Est GFR (CKD-EPI)NonAf 89 (>60 ml/min/1.73 sqM) Glucose 117 H (74-99) mg/dL Plasma Lactic Acid Mason (0.7-2.0) mmol/L Calcium 8.8 (8.4-10.2) mg/dL Total Bilirubin 0.4 (0.2-1.3) mg/dL AST 27 (17-59) U/L ALT 31 (4-49) U/L Alkaline Phosphatase 73 (38-126) U/L Total Protein 6.1 L (6.3-8.2) g/dL Albumin 3.6 (3.5-5.0) g/dL Influenza Type A (PCR) Not Detected (Not Detectd) Influenza Type B (PCR) Not Detected (Not Detectd) RSV (PCR) Not Detected (Not Detectd) SARS-CoV-2 (PCR) Not Detected (Not Detectd) 12/18/22 Range/Units 06:33 WBC (3.8-10.6) k/uL RBC (4.30-5.90) m/uL Hgb (13.0-17.5) gm/dL Hct (39.0-53.0) % MCV (80.0-100.0) fL MCH (25.0-35.0) pg MCHC (31.0-37.0) g/dL RDW (11.5-15.5) % Plt Count (150-450) k/uL MPV Neutrophils % % Lymphocytes % % Monocytes % % Eosinophils % % Basophils % % Neutrophils # (1.3-7.7) k/uL Lymphocytes # (1.0-4.8) k/uL Monocytes # (0-1.0) k/uL Eosinophils # (0-0.7) k/uL Basophils # (0-0.2) k/uL Sodium (137-145) mmol/L Potassium (3.5-5.1) mmol/L Chloride (98-107) mmol/L Carbon Dioxide (22-30) mmol/L Anion Gap mmol/L BUN (9-20) mg/dL Creatinine (0.66-1.25) mg/dL Est GFR (CKD-EPI)AfAm (>60 ml/min/1.73 sqM) Est GFR (CKD-EPI)NonAf (>60 ml/min/1.73 sqM) Glucose (74-99) mg/dL Plasma Lactic Acid Mason 1.9 (0.7-2.0) mmol/L Calcium (8.4-10.2) mg/dL Total Bilirubin (0.2-1.3) mg/dL AST (17-59) U/L ALT (4-49) U/L Alkaline Phosphatase (38-126) U/L Total Protein (6.3-8.2) g/dL Albumin (3.5-5.0) g/dL Influenza Type A (PCR) (Not Detectd) Influenza Type B (PCR) (Not Detectd) RSV (PCR) (Not Detectd) SARS-CoV-2 (PCR) (Not Detectd) Disposition Clinical Impression: Diarrhea Disposition: HOME SELF-CARE Condition: Stable Instructions (If sedation given, give patient instructions): Acute Diarrhea (ED) Additional Instructions: Please return to the nearest emergency department if fever or blood develop in diarrhea Please see small frequent meals. Please eat a diet consisting of bananas rice applesauce and toast. Please attempt to stay hydrated by drinking small teaspoons of Gatorade or ice chips Is patient prescribed a controlled substance at d/c from ED?: No Referrals: Tavares Bryson MD [Primary Care Provider] - 1-2 days Time of Disposition: 08:41
--- NOTE | 2022-12-18 08:34 | CT ---
EXAMINATION TYPE: CT abdomen pelvis w con DATE OF EXAM: 12/18/2022 COMPARISON: 02/07/2018 INDICATION: Diarrhea since 12-12-22. DLP: 4206.4 mGycm, Automated exposure control for dose reduction was used. CONTRAST: 100 ml mL of Isovue 300. Study performed without Oral Contrast TECHNIQUE: Axial images were obtained from above the diaphragm to the pubic rami in the axial plane a t 5 mm thick sections. Reconstructed images are reviewed on the computer in the coronal plane. FINDINGS: Limited CT sections are obtained the lung bases. The lung bases are clear. CT ABDOMEN: Liver: Normal Spleen: Normal Pancreas: Normal Adrenal glands: The adrenal glands are normal. Gallbladder: Normal Kidneys: No masses are evident. No hydronephrosis is present. No cysts are present. Delayed images were obtained through the kidneys, which remain unremarkable. Aorta: Vascular calcification is within the aorta. Inferior vena cava: Normal. CT PELVIS: No dilated loops of bowel are evident. Colon is of normal caliber. There is diverticular changes with out acute inflammatory change adjacent. No suspicious air-fluid levels are evident. This study is wit hout oral contrast limiting bowel evaluation Appendix: Normal as visualized. Urinary bladder: Normal. Genitourinary structures: Prostate is normal. Osseous structures: No suspicious lytic or sclerotic lesions. IMPRESSION: 1. No suspicious acute abnormality to account for patient's symptoms.
[2022-12-18 09:57] VITALS: BP 110/72; PULSE 70
== END 2022-12-18 09:57 | disposition home or self-care (01) ==
LOC: EC 05:13
DX: R19.7 Diarrhea, unspecified (principal); E11.9 Type 2 diabetes mellitus without complications; E78.5 Hyperlipidemia, unspecified; I10 Essential (primary) hypertension; F32.A Depression, unspecified; Z79.84 Long term (current) use of oral hypoglycemic drugs; Z79.899 Other long term (current) drug therapy; Z20.822 Contact with and (suspected) exposure to COVID-19
CPT/HCPCS: 36415; 80053; 83605; 85025; 87636; 74177; 99284; 96360; 96361 ×2; Q9967

== ENCOUNTER 2023-08-12 19:18 | Emergency (ER) | payer BC, MEDICARE ==
[2023-08-12 19:58] VITALS: TEMP 98
--- NOTE | 2023-08-12 20:31 | ED ---
Skin/Abscess/FB HPI - General Chief complaint: Skin/Abscess/Foreign Body Stated complaint: Tick Bite-Back Time Seen by Provider: 08/12/23 20:00 Source: patient, RN notes reviewed Mode of arrival: ambulatory Limitations: no limitations - History of Present Illness Initial comments: 52-year-old male presenting to the ER with chief complaint of evaluation of tick bite. States about an hour prior to arrival he removed what he believes is a deer tick from his back. States he removed the tick with his fingers. Denies engorgement of the tick. He admits an area of erythema around the site. he does not know when the tick latched. Denies any recent hiking or walks in the [place]. Denies any other rashes or symptoms currently. - Related Data Home Medications Medication Instructions Recorded Confirmed Amitriptyline HCl [Elavil] 25 mg PO HS 12/27/16 06/16/22 Benazepril HCl 20 mg PO DAILY 12/27/16 06/16/22 Cyclobenzaprine [Flexeril] 10 mg PO BID 12/27/16 06/16/22 Simvastatin [Zocor] 40 mg PO HS 12/27/16 06/16/22 traMADol HCL [Ultram] 50 mg PO DAILY 12/27/16 06/16/22 Metoprolol Tartrate [Lopressor] 25 mg PO BID 04/20/21 06/16/22 Pregabalin [Lyrica] 150 mg PO BID 04/20/21 06/16/22 metFORMIN HCL [Glucophage] 500 mg PO DAILY 04/20/21 06/16/22 rOPINIRole HCL [Requip] 1 mg PO HS 04/20/21 06/16/22 Dulaglutide [Trulicity] 1.5 mg SQ PEDRO 06/16/22 06/16/22 Ergocalciferol (Vitamin D2) 1,250 mcg PO SA 06/16/22 06/16/22 [Drisdol (50,000 Iu)] Triamterene/Hydrochlorothiazid 1 cap PO DAILY 06/16/22 06/16/22 [Triamterene-Hctz 37.5-25 mg Cp] traMADol HCl [Ultram] 100 mg PO HS 06/16/22 06/16/22 Previous Rx's Medication Instructions Recorded Dicyclomine [Bentyl] 20 mg PO TID #30 tablet 12/15/22 Allergies Allergy/AdvReac Type Severity Reaction Status Date / Time No Known Allergies Allergy Verified 08/12/23 19:32 Review of Systems ROS Statement: Those systems with pertinent positive or pertinent negative responses have been documented in the HPI. ROS Other: All systems not noted in ROS Statement are negative. Past Medical History Past Medical History: Chest Pain / Angina, Diabetes Mellitus, Hyperlipidemia, Hypertension, Musculoskeletal Disorder, Osteoarthritis (OA) Additional Past Medical History / Comment(s): 2017 Stress test - Lt side heart dominant. CTS bilat, Bulging discs, DDD, fx tailbone. Neuropathy BLE. RLS. Hx Covid 01/14/21, had antibody infusion. History of Any Multi-Drug Resistant Organisms: MRSA Date of last positivie culture/infection: 02/10/18 MDRO Source:: Groin Past Surgical History: Heart Catheterization, Orthopedic Surgery Additional Past Surgical History / Comment(s): Some teeth extracted. Lt Rotator cuff. Pain injections Past Anesthesia/Blood Transfusion Reactions: No Reported Reaction Past Psychological History: Depression Smoking Status: Never smoker Past Alcohol Use History: Rare Past Drug Use History: None Reported - Past Family History Mother Family Medical History: Cancer, Pulmonary Embolus Additional Family Medical History / Comment(s): LUNG CANCER.... MOM'S DAD HAD BONE CANCER Father Family Medical History: Coronary Artery Disease (CAD), Diabetes Mellitus, Hyper lipidemia, Hypertension, Myocardial Infarction (CA) Additional Family Medical History / Comment(s): TRIPLE CABG Brother(s) Additional Family Medical History / Comment(s): OLDEST BROTHER HAD BONE CANCER General Exam Limitations: no limitations General appearance: alert, in no apparent distress Neck exam: Present: normal inspection. Absent: tenderness, meningismus, lymphadenopathy Respiratory exam: Present: normal lung sounds bilaterally. Absent: respiratory distress, wheezes, rales, rhonchi, stridor Cardiovascular Exam: Present: regular rate, normal rhythm, normal heart sounds. Absent: systolic murmur, diastolic murmur, rubs, gallop, clicks Neurological exam: Present: alert, oriented X3, CN II-XII intact Psychiatric exam: Present: normal affect, normal mood Skin exam: Present: warm, dry, intact, normal color, rash (2 x 2 cm area of erythema present on mid back. No drainage or bull's-eye rash. No fluctuant mass.) Course Vital Signs 08/12/23 08/12/23 19:30 20:51 Temperature 98 F Pulse Rate 77 66 Respiratory 18 16 Rate Blood Pressure 151/85 122/84 O2 Sat by Pulse 99 97 Oximetry Medical Decision Making - Medical Decision Making Was pt. sent in by a medical professional or institution (, JOI, TOOLING MANAGER, urgent care, hospital, or [place] health care facility...) When possible be specific @ -No Did you speak to anyone other than the patient for history (EMS, parent, family, police, friend...)? What history was obtained from this source @ -Patient's supplemented history Did you review nursing and triage notes (agree or disagree)? Why? @ -I reviewed and agree with nursing and triage notes Were old charts reviewed (outside hosp., previous admission, EMS record, old EKG, old radiological studies, urgent care reports/EKG's, [place] health care facility records)? Report findings @ -No old charts were reviewed Differential Diagnosis (chest pain, altered mental status, abdominal pain women, abdominal pain men, vaginal bleeding, weakness, fever, dyspnea, syncope, headache, dizziness, GI bleed, back pain, seizure, CVA, palpatations, mental health, musculoskeletal)? @ -Tick bite, Lyme's, cellulitis, abscess, insect bite EKG interpreted by me (3pts min.). @ -None X-rays interpreted by me (1pt min.). @ -None done CT interpreted by me (1pt min.). @ -None done U/S interpreted by me (1pt. min.). @ -None done What testing was considered but not performed or refused? (CT, X-rays, U/S, labs)? Why? @ -None What meds were considered but not given or refused? Why? @ -None Did you discuss the management of the patient with other professionals (professionals i.e. JOI Garnica, TOOLING MANAGER, lab, RT, psych nurse, clinical social work aide, satellite manager, teacher, chief mechanical officer, manager of case management)? Give summary @ -No Was smoking cessation discussed for >3mins.? @ -No Was critical care preformed (if so, how long)? @ -No Were there social determinants of health that impacted care today? How? (Homelessness, low income, unemployed, alcoholism, drug addiction, transportation, low edu. Level, literacy, decrease access to med. care, usp, rehab)? @ -No Was there de-escalation of care discussed even if they declined (Discuss DNR or withdrawal of care, Hospice)? DNR status @ -No What co-morbidities impacted this encounter? (DM, HTN, Smoking, COPD, CAD, Cancer, CVA, ARF, Chemo, Hep., AIDS, mental health diagnosis, sleep apnea, morbid obesity)? @ -None Was patient admitted / discharged? Hospital course, mention meds given and route, prescriptions, significant lab abnormalities, going to OR and other pertinent info. @ -Patient was discharged. Patient was seen and evaluated for tick bite. Patient removed tick from the back 1 hour prior to arrival. There is mild erythema at site however no fluctuant mass or erythema migrans. Site was cleaned thoroughly. Patient meets criteria for prophylaxis for Lyme's disease. Patient was given 1 single dose of doxycycline. Discussed with patient in detail symptoms of progressing disease such as rashes and systemic symptoms. Patient shows understanding and agrees to plan. Patient discharged in stable condition. Case discussed with Dr. Argueta Undiagnosed new problem with uncertain prognosis? @ -No Drug Therapy requiring intensive monitoring for toxicity (Heparin, Nitro, Insulin, Cardizem)? @ -No Were any procedures done? @ -No Diagnosis/symptom? @ -Tick bite Acute, or Chronic, or Acute on Chronic? @-Acute Uncomplicated (without systemic symptoms) or Complicated (systemic symptoms)? @ -Uncomplicated Side effects of treatment? @ -No Exacerbation, Progression, or Severe Exacerbation? @ -No Poses a threat to life or bodily function? How? (Chest pain, [place], CA, pneumonia, PE, COPD, DKA, ARF, appy, cholecystitis, CVA, Diverticulitis, Homicidal, Suicidal, threat to staff... and all critical care pts) @ -No Disposition Clinical Impression: Tick bite Disposition: HOME SELF-CARE Condition: Stable Instructions (If sedation given, give patient instructions): Tick Bite (ED) Additional Instructions: Please return to the Emergency Department if symptoms worsen or any other concerns. Is patient prescribed a controlled substance at d/c from ED?: No Referrals: Tavares Bryson MD [Primary Care Provider] - 1-2 days Time of Disposition: 20:51
[2023-08-12] MEDS: DOXYCYCLINE 100 MG CAP PO STA (20:48)
[2023-08-12 21:18] VITALS: BP 122/84; PULSE 66; RESP 16
== END 2023-08-12 21:16 | disposition home or self-care (01) ==
LOC: EC 19:18
DX: S20.469A Insect bite (nonvenomous) of unspecified back wall of thorax, initial encounter (principal); W57.XXXA Bitten or stung by nonvenomous insect and other nonvenomous arthropods, initial encounter
CPT/HCPCS: 99282

== ENCOUNTER 2023-09-07 05:33 | Day surgery (SDC) | payer BC, MEDICARE ==
--- NOTE | 2023-09-06 13:27 | HP ---
HISTORY AND PHYSICAL DATE OF SURGERY: 09/07/2023. HISTORY OF PRESENT ILLNESS: Chencho Reddy is a 52-year-old gentleman, seen with progressive left shoulder pain. We discussed options regarding treatment. He elected to proceed with left shoulder arthroscopy. Consent was obtained. Preoperative clearance was provided by Dr. Tavares Bryson. PAST MEDICAL HISTORY: Hypertension, hyperlipidemia, fmn-dgjzksu-beijchrwq diabetes. PAST SURGICAL HISTORY: Left shoulder open rotator cuff repair. DAILY MEDICATIONS: 1. Amitriptyline. 2. Benazepril/hydrochlorothiazide. 3. Dyazide. 4. Lyrica. 5. Metoprolol. 6. Simvastatin. 7. Trulicity. ALLERGIES: None. SOCIAL HISTORY: Denies tobacco use. PHYSICAL EVALUATION OF THE LEFT SHOULDER: Flexion is 90 degrees, abduction is 70 degrees. External rotation is 10 degrees with weakness. Tenderness along the anterolateral acromion rotator cuff insertion site. Impingement is positive at 70 degrees. Cross-body adduction sign is positive. Drop- arm sign is positive. Distal neurovascular exam is intact. IMAGING STUDIES: Radiographs of the left shoulder revealed a type 2 acromion along with a metal anchor within the humeral head. MRI of left shoulder revealed a rotator cuff tendon tear, partial biceps tendon tear, impingement. IMPRESSION: 1. Left shoulder impingement with rotator cuff tear. 2. Left shoulder partial biceps tendon tear. 3. Left shoulder acromioclavicular joint osteoarthritis. PLAN: Left shoulder arthroscopy with subacromial decompression, rotator cuff repair, biceps tenodesis, possible Josep procedure and debridement. MMODL / IJN: [id number] /
[2023-09-07] MEDS ORDERED: LIDOCAINE 1% (10MG/ML) FOR IV START INTRADERMA PRN (06:09)
[2023-09-07] MEDS: LACTATED RINGERS 1,000 ML IV SCH (06:21)
[2023-09-07 06:48] LABS: Glucose,Whole Blood 105 mg/dL (70-110)
[2023-09-07] MEDS: DEXAMETHASONE SOD PHOSPHATE 4 MG/ML 1 ML VIAL IV ONE (06:57)
[2023-09-07] MEDS: ONDANSETRON 4 MG/2 ML VIAL IVP ONE (06:57)
[2023-09-07 06:58] LABS: Basophils % (A) 0 %; Eosinophils # (A) 0.2 k/uL (0-0.7); Eosinophils % (A) 2 %; HCT 47.4 % (39.0-53.0); HGB 15.4 gm/dL (13.0-17.5); Lymphocytes # (A) 2.4 k/uL (1.0-4.8); Lymphocytes % (A) 35 %; MCHC 32.6 g/dL (31.0-37.0); MCV 89.2 fL (80.0-100.0); Mean Platelet Volume 7.2; Monocytes # (A) 0.4 k/uL (0-1.0); Monocytes % (A) 6 %; Neutrophils # (A) 3.8 k/uL (1.3-7.7); Neutrophils % (A) 54 %; Platelet Count 238 k/uL (150-450); RBC 5.32 m/uL (4.30-5.90); RDW 13.6 % (11.5-15.5)
[2023-09-07] MEDS ORDERED: MIDAZOLAM 2 MG/2 ML VIAL IV PRN (07:00)
[2023-09-07] MEDS ORDERED: HYDROmorphone 0.5 MG/0.5 ML SYRINGE IVP PRN (07:00)
[2023-09-07] MEDS ORDERED: fentaNYL (PF) 50 MCG/ML 2 ML AMP IV PRN (07:00)
[2023-09-07] MEDS: MIDAZOLAM 2 MG/2 ML VIAL IVP ONE (07:12)
[2023-09-07] MEDS: fentaNYL (PF) 50 MCG/ML 2 ML AMP IVP ONE (07:13)
[2023-09-07 07:21] LABS: ALT 33 U/L (4-49); AST 30 U/L (17-59); African American GFR (CKD) >90 (>60 ml/min/1.73 sqM); Albumin 4.2 g/dL (3.5-5.0); Alkaline Phosphatase 75 U/L (38-126); Anion Gap 6 mmol/L; Blood Urea Nitrogen 22 mg/dL (9-20); Calcium 9.4 mg/dL (8.4-10.2); Carbon Dioxide 26 mmol/L (22-30); Chloride 107 mmol/L (98-107); Glucose 101 mg/dL (74-99); Non-African American GFR(CKD) >90 (>60 ml/min/1.73 sqM); Sodium 139 mmol/L (137-145); Total Bilirubin 0.4 mg/dL (0.2-1.3); Total Protein 6.6 g/dL (6.3-8.2)
[2023-09-07] MEDS ORDERED: EPINEPHrine 10 ML SYRINGE (0.1 MG/ML) ONE (07:29)
[2023-09-07] MEDS ORDERED: fentaNYL (PF) 50 MCG/ML 2 ML AMP ONE (07:29)
[2023-09-07] MEDS ORDERED: CALCIUM CHLORIDE 100 MG/ML 10 ML SYRINGE ONE (07:29)
[2023-09-07] MEDS ORDERED: LIDOCAINE 1% INJ 10MG/ML (20 ML MDV) ONE (07:29)
[2023-09-07] MEDS ORDERED: PROPOFOL 10 MG/ML 20 ML VIAL IV ONE (07:29)
[2023-09-07] MEDS ORDERED: ePHEDrine 50 MG/ML 1 ML VIAL ONE (07:29)
[2023-09-07] MEDS: ceFAZolin 3 GM in SODIUM CHLORIDE 0.9% 100 ML IVPB PRN (07:29)
[2023-09-07] MEDS ORDERED: NEOSTIGMINE 1 MG/ML 10 ML VIAL ONE (07:29)
[2023-09-07] MEDS ORDERED: SUCCINYLCHOLINE CHLORIDE 200 MG/10 ML VIAL IV ONE (07:29)
[2023-09-07] MEDS ORDERED: ROPIVACAINE 5 MG/ML 30 ML VIAL ONE (07:29)
[2023-09-07] MEDS ORDERED: GLYCOPYRROLATE 0.2 MG/ML 2 ML VIAL ONE (07:29)
[2023-09-07] MEDS ORDERED: MIDAZOLAM 2 MG/2 ML VIAL ONE (07:29)
[2023-09-07] MEDS ORDERED: ROCURONIUM 10 MG/ML (5 ML VIAL) IV ONE (07:29)
[2023-09-07] MEDS ORDERED: PHENYLEPHRINE-0.9% NACL SYG 1,000 MCG/10 ML SYRINGE ONE (07:29)
[2023-09-07 09:53] VITALS: RESP 16; TEMP 98
--- NOTE | 2023-09-07 10:00 | P.OP ---
Date of Procedure: 09/07/23 Preoperative Diagnosis: Left shoulder impingement with rotator cuff tear Postoperative Diagnosis: 1. Left shoulder rotator cuff tear 2. Left shoulder partial long head biceps tendon tear/bicipital tendinitis 3. Left shoulder impingement 4. Left shoulder superficial labral tear 5. 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 Left shoulder arthroscopic rotator cuff repair 2. Left shoulder arthroscopic biceps tenodesis 3. Left shoulder arthroscopic subacromial decompression 4. Left shoulder arthroscopic debridement labral tear Implants: 2Arthrex 4.75 swivel lock anchors Anesthesia: GETA, regional (Interscalene block) Surgeon: Vishnu Mukherjee Uniform Cap Operator #1: Andre Stevens Estimated Blood Loss (ml): 10 Pathology: none sent Condition: stable Disposition: PACU Indications for Procedure: 52-year-old gentleman seen with progressive left shoulder pain. After having treatment options discussed, he elected to proceed with arthroscopy. Operative Findings: See description of procedure Description of Procedure: Patient underwent an interscalene block by department of anesthesia. The patient was then taken to the operative suite. The patient underwent a general anesthetic by the department of anesthesia. The patient was placed into a lateral position and secured. There was appropriate padding of the bony prominence. Left shoulder was then prepped and draped in normal sterile orthopedic fashion. We placed the extremity in 10 pounds of longitudinal traction. A posterior incision was now made for a posterior working portal site. The trocar and cannula were inserted into the glenohumeral joint. Arthroscopy was initiated. Spinal needle was now inserted anteriorly, to ascertain the anterior working portal site. An incision was now made in that area, a trocar was inserted followed by a probe. There were grade III chondromalacia changes diffusely about the humeral head. There was a degenerative tear along the superior labrum. There were grade II chondromalacia changes about the glenoid fossa. There was hyperemia and partial tearing long head biceps tendon. I debrided out the superficial labral tear. I decided to proceed with arthroscopic biceps tenodesis. I introduced the cannula through the anterior portal site. I passed a loop and tack type stitch to the biceps tendon. I released the biceps from the superior anchor. With the assistance of JOI Puga I punched a hole at the interval area for insertion of an anchor. The suture limb was passed through the eyelet of an Arthrex 4.75 swivel lock anchor. I placed the eyelet into the prepunched hole. I held in position while JOI Puga tensioned the suture and deployed the anchor with good fixation noted. The residual suture limb was now clipped. There was a stable appearing arthroscopic biceps tenodesis. Instruments were now removed from the glenohumeral joint. Utilizing the posterior working portal site, the trocar and cannula were inserted into the subacromial space. Arthroscopy initiated. I made an incision 2 fingerbreadths lateral to the acromion. I introduced my trocar followed by my ArthroCare ablator. I now began ablating thick subacromial bursal tissue, which exposed the undersurface of the anterior acromion. There was some diminished space. I introduced an arthroscopic bur and performed a subacromial deco mpression. I noted adequate decompression of subacromial space. There is evidence for previous AC arthroplasty which appears stable. I now turned my attention to the rotator cuff tendon. I noted residual sutures which were exposed. I carefully removed any residual previous suture material. There was a 2 cm tear involving the central portion of the supraspinatus tendon with evidence of previous repair there. I debrided the margins getting down to stable tendon tissue. I abraded the footprint with a motorized bur getting to some petechial bleeding. With the assistance of JOI Puga I now passed 2 lyai-ue-lysu sutures to convergence a central portion of our tear. I repaired that in a [id number] fashion and clipped the residual limbs. I now passed 3 inverted mattress sutures through good bites of rotator cuff tendon. I punched a hole in the footprint area for insertion of an anchor. All 6 limbs of suture were passed through the eyelet of an Arthrex 4.75 swivel lock anchor. I placed the anchor into the prepunched a hole. I held in position while JOI Puga tensioned all 6 limbs of suture and deployed the anchor with good fixation noted. All residual suture limbs were now clipped. We had good compression of the tendon along the entire footprint. Instruments now removed from the portal sites. All portal sites were approximated with nylon suture. Sterile dressings were applied followed by a shoulder sling. Andre TAMEZ assisted in this complex case. The patient was awakened, transferred to a bed, and taken to recovery in stable condition.
[2023-09-07 10:48] VITALS: BP 128/82; PULSE 64
--- NOTE | 2023-09-07 10:55 | P.ANPRN ---
Procedure Note - Anesthesia - Nerve Block Performed Left Interscalene Single Time Out Performed: Yes (0712) Date of Procedure: 09/07/23 Procedure Start Time: 07:13 Procedure Stop Time: 07:17 Location of Patient: PreOp Indication: Acute Post-Operative Pain, Requested by Surgeon Specifically requested for management of pain by DrAnkit: Vishnu Mukherjee Sedation Type: Sedate with meaningful contact maintained Preparation: Sterile Prep Position: Supine Catheter: None Needle Types: Pajunk Needle Gauge: 21 Ultrasound used to visualize needle placement: Yes Ultrasound used to observe medication spread: Yes Injectate: 0.5% Ropivacaine (see comment for volume) (30cc) Blood Aspirated: No Pain Paresthesia on Injection Noted: No Resistance on Injection: Normal Image Stored and Saved: Yes Events: Uneventful and Well Tolerated
== END 2023-09-07 11:15 | disposition home or self-care (01) ==
LOC: OR 05:33
PROVIDERS: ATTEND Orthopaedic Surgery
DX: S46.212A Strain of muscle, fascia and tendon of other parts of biceps, left arm, initial encounter (principal); M19.012 Primary osteoarthritis, left shoulder; M75.42 Impingement syndrome of left shoulder; M75.102 Unspecified rotator cuff tear or rupture of left shoulder, not specified as traumatic; M25.812 Other specified joint disorders, left shoulder; I10 Essential (primary) hypertension; G89.18 Other acute postprocedural pain; E78.5 Hyperlipidemia, unspecified; E11.9 Type 2 diabetes mellitus without complications; Z79.84 Long term (current) use of oral hypoglycemic drugs; Z79.899 Other long term (current) drug therapy; X58.XXXA Exposure to other specified factors, initial encounter
CPT/HCPCS: 64415; 80053; 85025; 29826; 29827; 29828; C1713 ×2; J2250; J0330; J1100; J2710; J0690; J2405; J2001; J0171; J3010; J2795; J2704; J2371